=== PATIENT | female | born 1955 | race Caucasian/White ===

== ENCOUNTER 2016-11-27 12:28 | Emergency (ER) | payer BC ==
[~2016-11-27] VITALS: Ht 172.7 cm; Wt 87.6 kg
[~2016-11-27 12:28] MED LIST: AMIT10TA6 PO; ASPI-435 PO; CLON1TAB3 PO; METH1TAB66 PO; OXYC-57 PO; QUET400T PO
[2016-11-27 12:43] VITALS: TEMP 36.9; Ht 172.7 cm; Wt 87.6 kg
[2016-11-27 13:14] VITALS: O2SAT 95
--- NOTE | 2016-11-27 13:22 | DIAGNOSTIC IMAGING REPORT ---
CHEST ONE VIEW PORTABLE CLINICAL HISTORY: CP dyspnea COMPARISON STUDY: 07/17/2014 FINDINGS: The bones soft tissues and hemidiaphragms are normal. The cardiomediastinal silhouette is normal. The lungs are clear. The pulmonary vasculature is normal. IMPRESSION: Negative chest. Electronically signed by: Juan Echols M.D. 11/27/2016 1:21 PM Dictated Date/Time: 11/27/2016 1:21 PM
[2016-11-27] MEDS ORDERED: NITR1CAP16 PO (13:25)
[2016-11-27] MEDS ORDERED: ASPIRIN 81 MG CHEW PO STA (13:31)
[2016-11-27] MEDS ORDERED: ALBUT/IPRATROP 3MG/0.5MG NEB 3 ML VIAL INH STA (13:31)
[2016-11-27 14:07] LABS: HEMATOCRIT 38.8 % (37-47); MEAN CELL VOLUME 88.8 fL (80-100); MEAN CORPUSCULAR HEMOGLOBIN 30.9 pg (25-34); MEAN CORPUSCULAR HGB CONC 34.8 g/dl (32-36); MEAN PLATELET VOLUME 9.8 fL (7.4-10.4); PLATELET COUNT 208 K/uL (130-400); RED BLOOD COUNT 4.37 M/uL (4.2-5.4); WHITE BLOOD COUNT 6.07 K/uL (4.8-10.8)
[2016-11-27 14:16] LABS: PROTHROMBIN TIME (PATIENT) 10.4 SECONDS (9.0-12.0)
[2016-11-27 14:25] LABS: ALT/SGPT 27 U/L (12-78); BLOOD UREA NITROGEN 21 mg/dl (7-18); CARBON DIOXIDE 23 mmol/L (21-32); CHLORIDE 110 mmol/L (98-107); CREATININE 0.76 mg/dl (0.60-1.20); GLUCOSE 78 mg/dl (70-99); POTASSIUM 3.8 mmol/L (3.5-5.1); SODIUM 144 mmol/L (136-145)
[2016-11-27 14:30] LABS: ALB/GLOB RATIO 1.4 (0.9-2); ALKALINE PHOSPHATASE 116 U/L (45-117); AST/SGOT 20 U/L (15-37); CKMB/CK RATIO 1.4 (0-3.0)
[2016-11-27] MEDS ORDERED: KETOROLAC TROMETHAMINE 30 MG/ML VIAL IV STA (14:49)
[2016-11-27] MEDS ORDERED: HYDROCODONE/ACETAMOPHEN 5/325MG TAB PO STA (16:13)
[2016-11-27] MEDS ORDERED: HYDR-5688 PO (18:18)
--- NOTE | 2016-11-27 18:19 | EMERGENCY ROOM VISIT NOTE ---
History First contact with patient: 13:11 Chief Complaint: CHEST PAIN Stated Complaint: CHEST PAIN Nursing Triage Summary: PT PRESENTS VIA ALS FROM CAMPUS WHERE SHE WAS WORKING IN THE [place]ING [employer]. PT EXPERIENCED CHEST PAIN AT 1100 AND HAS REMAINED CONSTANT SINCE THEN. PT REPORTS PAIN "WORSE WITH INSPIRATION". PT VERBALIZES SHE HAS HAD BRONCHITIS FOR OVER A MONTH, JUST FINISHED Z-CRUZ THIS SUNDAY WITH NO IMPROVEMENT IN SYMPTOMS. PT DENIES ANY CARDIAC HX. History of Present Illness The patient is a 61 year old female who presents to the Emergency Room via ALS with complaints of chest pain which started at 11:00 today. The patient states it is all across her chest and worse on the sides especially when she takes in a deep inspiration. She describes it more as a tightness. She denies any jaw or arm pain. The patient states that she has had bronchitis for over a month. She finished a Z-Cruz last Sunday. She has been coughing for a long time. The patient also admits to head congestion but denies any ear pain or sore throat. The patient denies any nausea or vomiting. The patient denies any leg pain or swelling. The patient does not smoke. She denies any history of blood clots. The patient denies any leg pain, recent travel, hormone use. The patient denies any history of cardiac disorder. She had a stress test in July 2014 when they thought she might had a stroke. She states that was normal. Review of Systems 10 system review was performed and was negative unless stated otherwise history of present illness. Past Medical/Surgical History Medical Problems: (1) Appendectomy (2) Asthma, Unspecified (3) Cholecystectomy (4) Depression (5) Endometriosis (6) Hypertension Nos (7) Hysterectomy (8) Laparoscopy Family History Cancer Heart disease Hypertension Kidney disease Kidney stones Social History Smoking Status: Never Smoker Alcohol Use: none Drug Use: none Marital Status: Housing Status: lives with family Occupation Status: employed Current/Historical Medications Scheduled Amitriptyline Hcl (Elavil), 10 MG PO QAM Aspirin (Aspirin 81), 81 MG PO QPM Methylcellulose (Laxative) (Fiber Therapy), 1,000 MG PO DAILY Quetiapine Fumarate Xr (Seroquel Xr Tab), 400 MG PO HS Scheduled PRN Clonazepam (Klonopin), 1 MG PO DAILY PRN for UNKN Nitrofurantoin Monohyd Macro (Macrobid), 1 CAP PO UD PRN for Migraine Allergies Coded Allergies: Sulfa Drugs (Verified Allergy, Unknown, 07/17/14) Sulfamethoxazole (Verified Allergy, Unknown, 07/17/14) Physical Exam Vital Signs Date Time Temp Pulse Resp B/P Pulse Ox O2 Delivery O2 Flow Rate FiO2 11/27/16 17:23 83 18 151/104 94 Room Air 11/27/16 15:40 86 18 121/94 90 Room Air 11/27/16 14:43 90 20 130/91 92 Room Air 11/27/16 13:15 84 11/27/16 13:14 95 Room Air 11/27/16 13:11 92 Room Air 11/27/16 12:43 96 Room Air 11/27/16 12:43 36.9 85 20 141/99 98 Room Air Physical Exam PHYSICAL EXAM: Vital Signs were reviewed: Temperature 36.9, blood pressure 141/ 99, pulse 85, rest for a rate 20 Reviewed Nurse's notes and agree. Oxygen saturation is 98 % on room air which is normal . GENERAL: 61-year-old female appears in no acute distress. MENTAL STATUS: Alert, oriented, coherent. EARS: Canals with some cerumen able to visualize partial TMs without erythema or fluid level. NOSE: Nasal mucosa with moderate erythema engorgement. PHARYNX: No erythema, no edema noted. No exudate noted. Airway is adequate. NECK: Supple , non-tender. No lymphadenopathy noted. LUNGS: Clear to auscultation without wheezes rales or rhonchi. CARDIAC: Regular rate and rhythm without murmur. ABDOMEN: Positive bowel sounds all 4 quadrants. Soft, nontender to palpation without organomegaly or masses SKIN: No rashes noted. LOWER EXTREMITIES: No cyanosis or edema noted. Calves are nontender. No palpable cords. Medical Decision & Procedures ER Provider Diagnostic Interpretation: CHEST ONE VIEW PORTABLE CLINICAL HISTORY: CP dyspnea COMPARISON STUDY: 07/17/2014 FINDINGS: The bones soft tissues and hemidiaphragms are normal. The cardiomediastinal silhouette is normal. The lungs are clear. The pulmonary vasculature is normal. IMPRESSION: Negative chest. Electronically signed by: Juan Echols M.D. 11/27/2016 1:21 PM Dictated Date/Time: 11/27/2016 1:21 PM Laboratory Results 11/27/16 14:00 11/27/16 14:00 Test 11/27/16 14:00 11/27/16 14:06 11/27/16 17:27 Red Blood Count 4.37 M/uL (4.2-5.4) Mean Corpuscular Volume 88.8 fL (80-100) Mean Corpuscular Hemoglobin 30.9 pg (25-34) Mean Corpuscular Hemoglobin Concent 34.8 g/dl (32-36) RDW Standard Deviation 41.9 fL (36.4-46.3) RDW Coefficient of Variation 12.9 % (11.5-14.5) Mean Platelet Volume 9.8 fL (7.4-10.4) Prothrombin Time 10.4 SECONDS (9.0-12.0) Prothromb Time International Ratio 1.0 (0.9-1.1) Activated Partial Thromboplast Time 26.4 SECONDS (21.0-31.0) Partial Thromboplastin Ratio 1.0 Anion Gap 11.0 mmol/L (3-11) Est Creatinine Clear Calc Drug Dose 92.3 ml/min Estimated GFR () 99.5 Estimated GFR (Non- 85.9 BUN/Creatinine Ratio 27.0 (10-20) Calcium Level 9.0 mg/dl (8.5-10.1) Total Bilirubin 0.3 mg/dl (0.2-1) Aspartate Amino Transf (AST/SGOT) 20 U/L (15-37) Alanine Aminotransferase (ALT/SGPT) 27 U/L (12-78) Alkaline Phosphatase 116 U/L (45-117) Total Creatine Kinase 97 U/L (26-192) Creatine Kinase MB 1.4 ng/ml (0.5-3.6) Creatine Kinase MB Ratio 1.4 (0-3.0) Total Protein 6.9 gm/dl (6.4-8.2) Albumin 4.0 gm/dl (3.4-5.0) Globulin 2.9 gm/dl (2.5-4.0) Albumin/Globulin Ratio 1.4 (0.9-2) Bedside D-Dimer 186 ng/mlFEU (0-450) Troponin I < 0.015 ng/ml (0-0.045) Medications Administered Medications (Trade) Dose Ordered Sig/Maria Dolores Route Start Time Stop Time Status Last Admin Dose Admin Albuterol/ Ipratropium (Duoneb) 3 ml NOW STAT INH 11/27/16 13:31 11/27/16 13:33 DC 11/27/16 13:42 3 ML Ketorolac Tromethamine (Toradol Inj) 30 mg NOW STAT IV 11/27/16 14:49 11/27/16 14:50 DC 11/27/16 15:05 30 MG Acetaminophen/ Hydrocodone Bitart (Fenton 5/325 Tab) 2 tab NOW STAT PO 11/27/16 16:13 11/27/16 16:14 DC 11/27/16 16:33 2 TAB ECG Indication: chest pain Rhythm: normal sinus Findings: no acute ischemic change ED Course The patient was evaluated. EMR was reviewed. The patient did have a stress test in July 2014 which was normal. Critical pathway had been initiated. CBC differential, renal, coags, CK-MB, troponin, pointing care d-dimer was ordered. EKG was ordered and interpreted as above without any acute findings. Chest x-ray was ordered and interpreted by the radiologist as above without any acute findings. The patient had already been given 324 mg of aspirin in route to the ER. She was also given a DuoNeb. She stated that she felt better after the DuoNeb. She is placed on a monitor and given oxygen. Continuous pulse ox was placed. Labs are reviewed and were all unremarkable. Pointing care d- dimer was within normal limits. First troponin was within normal limits. A 90 minute troponin was normal. The patient's case was discussed with Dr. Lee who agrees with treatment plan. The patient was discharged home in stable condition. Medical Decision Differential diagnosis include pneumonia, costochondritis, bronchitis, asthma exacerbation, acute MS, PE Impression Primary Impression: Acute costochondritis Additional Impression: Bronchitis Departure Information Dispostion Home / Self-Care Condition GOOD Prescriptions Hydrocodone/Acetaminophen 5MG/325MG (Fenton 5MG/325MG) Tab 1-2 TABLET PO Q6 Y for Pain, #20 TAB For Initial Treatment Prov: Belinda Echols PA-C 11/27/16 Referrals Ang Morris M.D. (PCP) Forms HOME CARE DOCUMENTATION FORM, IMPORTANT VISIT INFORMATION Patient Instructions [email or web address] Additional Instructions Ibuprofen 600 mg every 6 hours with food for pain. Take Fenton as needed for more severe pain. Do not drive while taking the Fenton. If symptoms worsen such as experiencing severe chest pain, shortness of breath which is different than what you're currently experiencing return to the ER immediately. Problem Qualifiers
[2016-11-27 18:32] VITALS: BP 132/89; PULSE 77; O2SAT 94
== END 2016-11-27 18:33 | disposition home or self-care (01) ==
LOC: EDBD 12:28 → C.EDB 12:29
DX: M94.0 Chondrocostal junction syndrome [Tietze] (principal); J40 Bronchitis, not specified as acute or chronic; J45.909 Unspecified asthma, uncomplicated; F32.9 Major depressive disorder, single episode, unspecified; I10 Essential (primary) hypertension; Z90.710 Acquired absence of both cervix and uterus; Z82.49 Family history of ischemic heart disease and other diseases of the circulatory system; Z84.1 Family history of disorders of kidney and ureter; Z79.82 Long term (current) use of aspirin

== ENCOUNTER → 2017-08-26 | Outpatient (CLI) | payer BC ==
[~2017-08-26] MED LIST changes: +NITR1CAP16 PO; -OXYC-57 PO
--- NOTE | 2017-08-26 15:02 | DIAGNOSTIC IMAGING REPORT ---
L RIBS UNILATERAL WITH PA CHEST HISTORY: 62 years-old Female RIB PAIN ON LEFT SIDE acute left-sided rib pain status post recent fall COMPARISON: Chest and rib radiographs 12/30/2015 TECHNIQUE: PA view of the chest with 4 views of the left ribs FINDINGS: Cardiomediastinal and hilar silhouettes are within normal limits. There is mild tortuosity and atherosclerosis of the thoracic aorta. Patient is slightly rotated to the right. Mild biapical pleural-parenchymal scarring. There is no pneumothorax, pleural effusion, focal airspace consolidation or overt pulmonary edema. Bones of the chest are grossly intact. No acute rib fracture identified. Surgical clips of the right upper abdomen suggest prior cholecystectomy. IMPRESSION: 1. No acute cardiopulmonary process. No pneumothorax. 2. No acute rib fracture identified. The above report was generated using voice recognition software. It may contain grammatical, syntax or spelling errors. Electronically signed by: Regino Catherine M.D. 08/26/2017 3:00 PM Dictated Date/Time: 08/26/2017 2:58 PM
== END | disposition home or self-care (01) ==
LOC: C.RAD 14:07
PROVIDERS: ATTEND Physician Assistant Medical
DX: R07.81 Pleurodynia (principal)

== ENCOUNTER → 2017-09-05 | Outpatient (CLI) | payer BC ==
[~2017-09-05] MED LIST changes: +KLN1 PO; +MIDRIN PO; +QUET1TAB37 PO
== END | disposition home or self-care (01) ==
LOC: C.PAPS 09:42
PROVIDERS: ATTEND Obstetrics & Gynecology
DX: Z01.419 Encounter for gynecological examination (general) (routine) without abnormal findings (principal)

== ENCOUNTER → 2017-09-05 | Outpatient (CLI) | payer BC ==
[~2017-09-05] MED LIST changes: -KLN1 PO; -MIDRIN PO; -QUET1TAB37 PO
[2017-09-05 15:36] LABS: URINE APPEARANCE CLOUDY (CLEAR); URINE BILIRUBIN NEG (NEG); URINE COLOR YELLOW; URINE EPITHELIAL CELL AUTO >30 /lpf (0-5); URINE NITRITE NEG (NEG); URINE SPECIFIC GRAVITY 1.024 (1.000-1.030); UROBILINOGEN NEG (NEG); ZZUR CULT IF INDIC CLEAN CATCH YES
[2017-09-05 15:50] LABS: MANUAL MICROSCOPIC REQUIRED? NO; REVIEW REQ? NO
== END | disposition home or self-care (01) ==
LOC: C.LABSPEC 14:52
PROVIDERS: ATTEND Obstetrics & Gynecology
DX: R31.9 Hematuria, unspecified (principal)

== ENCOUNTER 2017-09-16 13:51 | Observation (INO) | payer BC ==
[~2017-09-16] VITALS: Ht 172.7 cm; Wt 83.9 kg
[2017-09-16] MEDS ORDERED: KLN1 PO (14:33)
[2017-09-16] MEDS ORDERED: QUET1TAB37 PO (14:33)
--- NOTE | 2017-09-16 14:59 | EMERGENCY ROOM VISIT NOTE ---
History Report prepared by Santi: Cristobal Courtney Under the Supervision of: Dr. Jim Harper M.D. First contact with patient: 14:20 Chief Complaint: CHEST PAIN Stated Complaint: CHEST PAIN,ARM PAIN Nursing Triage Summary: Pt c/o left arm that began an hour ago "and a little bit of chest pain (left) here and there". Denies nausea, SOB, DESHPANDE, nausea, diaphoresis. History of Present Illness The patient is a 62 year old white female with a past medical history of cholecystectomy, appendectomy, depression who presents to the ED with a cc of constant chest pain beginning 1230. She rates her pain as a 3/10 in severity. Positive right arm pain, finger numbness. Negative swelling in legs, history of blood clots, calf pain, shortness of breath, nausea, diaphoresis, cough, fevers , chills, a prior similar experience, a history of heart attacks. She states that she was standing at the mauro register at [employer] when the pain started. The patient reports that she fell three weeks ago, which caused her to develop a bruise to the left side of her chest and knee pain. She reports that her father and brother due to heart complications at the age of 63 and 43, respectively. The patient admits that she did not take her baby aspirin today. Source of History: patient Onset: 1230 Position: chest Symptom Intensity: 3/10 Timing: constant Associated Symptoms: + numbness, No fevers, No chills, No diaphoresis, No cough, No SOB, No nausea Review of Systems See HPI for pertinent positives and negatives. A total of ten systems were reviewed and were otherwise negative. Past Medical & Surgical Medical Problems: (1) Appendectomy (2) Asthma, Unspecified (3) Cholecystectomy (4) Depression (5) Endometriosis (6) Hypertension Nos (7) Hysterectomy (8) Laparoscopy Family History Cancer Heart disease Hypertension Kidney disease Kidney stones Social History Smoking Status: Never Smoker Alcohol Use: none Drug Use: none Marital Status: Housing Status: lives with family Occupation Status: employed Current/Historical Medications Scheduled Amitriptyline Hcl (Elavil), 10 MG PO QAM Aspirin (Aspirin 81), 81 MG PO QPM Clonazepam (Clonazepam), 2 MG PO HS Methylcellulose (Laxative) (Fiber Therapy), 1,000 MG PO DAILY Quetiapine Fumarate (Seroquel), 300 MG PO DAILY Scheduled PRN Nitrofurantoin Monohyd Macro (Macrobid), 1 CAP PO UD PRN for Migraine Allergies Coded Allergies: Sulfa Drugs (Verified Allergy, Unknown, 09/16/17) Sulfamethoxazole (Verified Allergy, Unknown, 09/16/17) Physical Exam Vital Signs Date Time Temp Pulse Resp B/P (MAP) Pulse Ox O2 Delivery O2 Flow Rate FiO2 09/16/17 16:47 68 119/91 09/16/17 16:01 77 133/88 09/16/17 15:09 76 18 136/97 94 Room Air 09/16/17 14:19 81 09/16/17 14:17 95 Room Air 09/16/17 13:56 93 Room Air 09/16/17 13:53 36.6 87 16 157/84 93 Room Air Physical Exam GENERAL: Awake, alert, well-appearing, NAD HENT: Normocephalic, atraumatic. EYES: Normal conjunctiva. Sclera non-icteric. NECK: Supple. No nuchal rigidity. FROM. RESPIRATORY: CTAB, no rhonchi, wheezing, crackles CARDIAC: RRR, no MRG ABDOMEN: Soft, NTND, BS+ MSK: No reproducible chest wall tenderness. TTP, no LE edema, negative Homans, no erythema, calor, or asymmetry. NEURO: GCS 15, CN 2-12 intact, moves all 4s on command SKIN: No rash or jaundice noted. Medical Decision & Procedures ER Provider Diagnostic Interpretation: X-ray: Per my interpretation, radiologist review. SINGLE VIEW CHEST CLINICAL HISTORY: Atypical chest pain. FINDINGS: An AP, portable, upright chest radiograph is compared to study dated 11/27/2016. The examination is degraded by portable technique and patient rotation. The cardiomediastinal silhouette is unremarkable. There is mild atherosclerotic calcification of the thoracic aorta. Chronic interstitial thickening is unchanged. No airspace consolidation, large pleural effusion, or pneumothorax is seen. The skeletal structures are osteopenic. Degenerative change and scoliosis are noted in the thoracic spine. IMPRESSION: No acute cardiopulmonary abnormality. Electronically signed by: Contreras Barnett M.D. 09/16/2017 3:25 PM Dictated Date/Time: 09/16/2017 3:24 PM Laboratory Results 09/16/17 14:52 Red Blood Count 4.55, Mean Corpuscular Volume 92.3, Mean Corpuscular Hemoglobin 31.0, Mean Corpuscular Hemoglobin Concent 33.6, Mean Platelet Volume 10.6, Neutrophils (%) (Auto) 56.8, Lymphocytes (%) (Auto) 30.8, Monocytes (%) (Auto) 8.8, Eosinophils (%) (Auto) 3.0, Basophils (%) (Auto) 0.2, Neutrophils # (Auto) 2.84, Lymphocytes # (Auto) 1.54, Monocytes # (Auto) 0.44, Eosinophils # (Auto) 0.15, Basophils # (Auto) 0.01 09/16/17 14:52 09/16/17 16:22 Test 09/16/17 14:52 09/16/17 16:22 White Blood Count 5.00 K/uL (4.8-10.8) Red Blood Count 4.55 M/uL (4.2-5.4) Hemoglobin 14.1 g/dL (12.0-16.0) Hematocrit 42.0 % (37-47) Mean Corpuscular Volume 92.3 fL (80-100) Mean Corpuscular Hemoglobin 31.0 pg (25-34) Mean Corpuscular Hemoglobin Concent 33.6 g/dl (32-36) Platelet Count 198 K/uL (130-400) Mean Platelet Volume 10.6 fL (7.4-10.4) Neutrophils (%) (Auto) 56.8 % Lymphocytes (%) (Auto) 30.8 % Monocytes (%) (Auto) 8.8 % Eosinophils (%) (Auto) 3.0 % Basophils (%) (Auto) 0.2 % Neutrophils # (Auto) 2.84 K/uL (1.4-6.5) Lymphocytes # (Auto) 1.54 K/uL (1.2-3.4) Monocytes # (Auto) 0.44 K/uL (0.11-0.59) Eosinophils # (Auto) 0.15 K/uL (0-0.5) Basophils # (Auto) 0.01 K/uL (0-0.2) RDW Standard Deviation 44.6 fL (36.4-46.3) RDW Coefficient of Variation 13.2 % (11.5-14.5) Immature Granulocyte % (Auto) 0.4 % Immature Granulocyte # (Auto) 0.02 K/uL (0.00-0.02) Prothrombin Time 10.6 SECONDS (9.0-12.0) Prothromb Time International Ratio 1.0 (0.9-1.1) Activated Partial Thromboplast Time 26.6 SECONDS (21.0-31.0) Partial Thromboplastin Ratio 1.0 Anion Gap 4.0 mmol/L (3-11) Est Creatinine Clear Calc Drug Dose 86.0 ml/min Estimated GFR () 92.9 Estimated GFR (Non- 80.1 BUN/Creatinine Ratio 26.6 (10-20) Calcium Level 9.2 mg/dl (8.5-10.1) Phosphorus Level 3.3 mg/dl (2.5-4.9) Total Bilirubin 0.6 mg/dl (0.2-1) Alanine Aminotransferase (ALT/SGPT) 38 U/L (12-78) Alkaline Phosphatase 121 U/L (45-117) Troponin I < 0.015 ng/ml (0-0.045) Total Protein 7.5 gm/dl (6.4-8.2) Albumin 4.1 gm/dl (3.4-5.0) Lipase 96 U/L (73-393) Magnesium Level 2.5 mg/dl (1.8-2.4) Direct Bilirubin 0.1 mg/dl (0-0.2) Aspartate Amino Transf (AST/SGOT) 23 U/L (15-37) Laboratory results reviewed by me Medications Administered Medications (Trade) Dose Ordered Sig/Maria Dolores Route Start Time Stop Time Status Last Admin Dose Admin Nitroglycerin (Nitrostat Tab) 0.4 mg Q5M PRN SL 09/16/17 15:15 18 15:14 09/16/17 16:00 0.4 MG Aspirin (Aspirin Chew) 324 mg NOW STAT PO 09/16/17 15:02 09/16/17 15:04 DC 09/16/17 15:26 324 MG Acetaminophen (Tylenol Tab) 1,000 mg NOW STAT PO 09/16/17 16:11 09/16/17 16:12 DC 09/16/17 16:21 1,000 MG ECG Indication: chest pain Rate (beats per minute): 85 Rhythm: normal sinus Findings: other (Normal intervals and axis. No other ST or TWI changes.) ED Course 1439: The patient was evaluated in room B08. A complete history and physical exam was performed. 1622: I discussed the patients case with Reinier Islas Hospitalist. She understands the patients condition and agrees to accept the patient. The patient will be further evaluated. 1638: I reevaluated the patient and updated her on her results. I discussed the treatment plan and she agrees. The patient will be further evaluated. Medical Decision Triage Nursing notes reviewed. The patient's presentation and history were concerning for etiologies such as cardiac ischemia, aortic dissection, pulmonary embolism, pneumonia, pneumothorax , musculoskeletal, infections, pericarditis, myocarditis, esophageal rupture, gastrointestinal, as well as others were entertained. Patient was seen and evaluated the bedside. Patient is a [id number] with no known medical problems. Patient does have an family history of early HI. Patient states that her father and brother at the ages of 63 and 43 respectively from MIs. Patient says that she had sudden onset of nonexertional left-sided chest pain that she cannot describe associated pain in her left upper extremity. Patient denies any shortness of breath nausea vomiting or diaphoresis. Patient denies any history of DVT or PE. Patient has no recent prolonged car or plane travel. She denies any lower extremity swelling. Patient states that she has had an echo and stress tests however review the EMR this is not been done in over 3 years. Patient does take a baby aspirin but does not take one today. Patient denies any infectious symptoms. Patient did have blood work completed along with a troponin EKG. Patient was given aspirin and nitroglycerin. Upon reassessment the patient's chest pain improved. Patient does have borderline hypertension and has some borderline obesity. Given the patient's familial early cardiac history I did speak with the hospitalist agreed the patient would likely benefit from observation, trending of enzymes, and more provocative testing tomorrow. Patient was complaining of some mild headache after the nitroglycerin. She was given Tylenol. Patient's EKG was nonischemic. Patient's blood work was fairly unremarkable had a negative troponin. Chest x-ray was clear. Patient was admitted for observation. Medication Reconcilliation Current Medication List: was personally reviewed by me Blood Pressure Screening Patient's blood pressure: Elevated blood pressure Blood pressure disposition: Elevated BP felt to be situational Consults Time Called: 1621 Consulting Physician: Esperanza Islas Hospitalist Returned Call: [phone]: I discussed the patients case with Esperanza Islas Hospitalist. She understands the patients condition and agrees to accept the patient. The patient will be further evaluated. Impression Primary Impression: Atypical chest pain Scribe Attestation The scribe's documentation has been prepared under my direction and personally reviewed by me in its entirety. I confirm that the note above accurately reflects all work, treatment, procedures, and medical decision making performed by me. Departure Information Dispostion Being Evaluated By Hospitalist Referrals Ang Morris M.D. (PCP) Patient Instructions [facility]
[2017-09-16] MEDS ORDERED: ASPIRIN 81 MG CHEW PO STA (15:02)
[2017-09-16] MEDS ORDERED: NITROGLYCERIN 0.4 MG SL PER TAB CHARGE SL PRN (15:15)
[2017-09-16 15:22] LABS: PROTHROMBIN TIME (PATIENT) 10.6 SECONDS (9.0-12.0)
--- NOTE | 2017-09-16 15:27 | DIAGNOSTIC IMAGING REPORT ---
SINGLE VIEW CHEST CLINICAL HISTORY: Atypical chest pain. FINDINGS: An AP, portable, upright chest radiograph is compared to study dated 11/27/2016. The examination is degraded by portable technique and patient rotation. The cardiomediastinal silhouette is unremarkable. There is mild atherosclerotic calcification of the thoracic aorta. Chronic interstitial thickening is unchanged. No airspace consolidation, large pleural effusion, or pneumothorax is seen. The skeletal structures are osteopenic. Degenerative change and scoliosis are noted in the thoracic spine. IMPRESSION: No acute cardiopulmonary abnormality. Electronically signed by: Contreras Barnett M.D. 09/16/2017 3:25 PM Dictated Date/Time: 09/16/2017 3:24 PM
[2017-09-16 15:31] LABS: BASO % 0.2 %; BASO ABS # 0.01 K/uL (0-0.2); COMPLETE YES; IG% 0.4 %; LYMPH % 30.8 %; LYMPH ABS # 1.54 K/uL (1.2-3.4); MEAN CELL VOLUME 92.3 fL (80-100); MEAN CORPUSCULAR HGB CONC 33.6 g/dl (32-36); MEAN PLATELET VOLUME 10.6 fL (7.4-10.4); MONO % 8.8 %; NEUT % 56.8 %; PLATELET COUNT 198 K/uL (130-400); RED BLOOD COUNT 4.55 M/uL (4.2-5.4)
[2017-09-16 16:07] LABS: ALKALINE PHOSPHATASE 121 U/L (45-117); ALT/SGPT 38 U/L (12-78); BLOOD UREA NITROGEN 21 mg/dl (7-18); BUN/CREATININE RATIO 26.6 (10-20); CALCIUM 9.2 mg/dl (8.5-10.1); CARBON DIOXIDE 27 mmol/L (21-32); CHLORIDE 106 mmol/L (98-107); GLUCOSE 78 mg/dl (70-99); PHOSPHORUS 3.3 mg/dl (2.5-4.9); SODIUM 137 mmol/L (136-145)
[2017-09-16] MEDS ORDERED: ACETAMINOPHEN 500 MG TAB PO STA (16:11)
[2017-09-16 16:49] LABS: POTASSIUM 3.9 mmol/L (3.5-5.1)
[2017-09-16 16:54] LABS: MAGNESIUM 2.5 mg/dl (1.8-2.4)
[2017-09-16] MEDS ORDERED: MIDRIN PO (17:24)
[2017-09-16] MEDS ORDERED: POLYETHYLENE (MIRALAX) 17 GM PACK PO PRN (17:30)
[2017-09-16] MEDS ORDERED: ONDANSETRON INJ 2 MG/ML 2 ML VIAL IV PRN (17:30)
[2017-09-16] MEDS ORDERED: HYDROCODONE/ACETAMINOPHEN 7.5/325MG TAB PO PRN (17:30)
--- NOTE | 2017-09-16 17:35 | History and Physical ---
History & Physical Date & Time of Service: Sep 16, 2017 at 17:24 Chief Complaint: Chest Pain,Arm Pain Primary Care Physician: Ang Morris M.D. 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 She had been working for 1.5 hours when pain came on. Pain was described as being in her L anterior chest with radiation down her R arm and into her hand. Numbness was present in the L hand. The pain lasted for 30 minutes and resolved spontaneously. It later came back and persisted until she arrived to the ER from PCP office. She was given nitro which took the pain away, but then came back mildly. She reports not being able to tolerate morphine or oxycodone (Percocet) in the past. She denies any associated symptoms of SOB, diaphoresis, headache, palpitations, nausea, vomiting, diarrhea. She reports having a stress test 3 years ago which she says was normal. Her father from an MT at age 63 yrs old and her brother from a cardiomyopathy at age 43. She denies any chest pain prior to today except in the distant past as a one time episode, not involving the arm. Past Medical/Surgical History Medical Problems: (1) Appendectomy Status: Resolved (2) Asthma, Unspecified Status: Chronic (3) Cholecystectomy Status: Resolved (4) Depression Status: Chronic (5) Endometriosis Status: Chronic (6) Hypertension Nos Status: Chronic (7) Hysterectomy Status: Resolved (8) Laparoscopy Status: Resolved Family History Cancer Heart disease Hypertension Kidney disease Kidney stones Social History Smoking Status: Never Smoker Smokeless Tobacco Use: No Alcohol Use: none Drug Use: none Marital Status: Housing status: lives with family Occupational Status: employed Immunizations History of Influenza Vaccine: N/A History of Tetanus Vaccine?: UTD Tetanus Immunization Date: March 05, 2004 History of Pneumococcal: No History of Hepatitis B Vaccine: Yes Hepatitis Immunization Date: March 05, 2006 Multi-Drug Resistant Organisms History of MDRO: No Allergies Coded Allergies: Sulfa Antibiotics (Verified Allergy, Unknown, unknown, 09/16/17) Sulfamethoxazole (Verified Allergy, Unknown, 09/16/17) Home Medications Scheduled Amitriptyline Hcl (Elavil), 10 MG PO QAM Aspirin (Aspirin 81), 81 MG PO DAILY Clonazepam (Clonazepam), 2 MG PO HS Methylcellulose (Laxative) (Fiber Therapy), 1,000 MG PO DAILY Quetiapine Fumarate (Seroquel), 300 MG PO HS Scheduled PRN [Midrin], 1 CAP PO UD PRN for Migraine Review of Systems AT least ten systems were reviewed and negative except as indicated in HPI. Physical Exam Vital Signs Date Time Temp Pulse Resp B/P (MAP) Pulse Ox O2 Delivery O2 Flow Rate FiO2 09/16/17 16:47 68 119/91 09/16/17 16:01 77 133/88 09/16/17 15:09 76 18 136/97 94 Room Air 09/16/17 14:19 81 09/16/17 14:17 95 Room Air 09/16/17 13:56 93 Room Air 09/16/17 13:53 36.6 87 16 157/84 93 Room Air General Appearance: WD/WN, no apparent distress Head: normocephalic, atraumatic Eyes: normal inspection, PERRL, sclerae normal ENT: hearing grossly normal, pharynx normal Neck: supple, no adenopathy, no JVD, trachea midline Respiratory/Chest: chest non-tender, lungs clear, normal breath sounds, no respiratory distress, no accessory muscle use Cardiovascular: regular rate, rhythm, no edema, no gallop, no JVD, no murmur, normal peripheral pulses Abdomen/GI: normal bowel sounds, non tender, soft Back: normal inspection Extremities/Musculoskelatal: normal inspection, no pedal edema, normal range of motion Neurologic/Psych: silk hanger II-XII nml as tested, no motor/sensory deficits, alert, normal mood/affect, oriented x 3 Skin: normal color, warm/dry, no rash Diagnostics Laboratory Results 09/16/17 14:52 Red Blood Count 4.55, Mean Corpuscular Volume 92.3, Mean Corpuscular Hemoglobin 31.0, Mean Corpuscular Hemoglobin Concent 33.6, Mean Platelet Volume 10.6, Neutrophils (%) (Auto) 56.8, Lymphocytes (%) (Auto) 30.8, Monocytes (%) (Auto) 8.8, Eosinophils (%) (Auto) 3.0, Basophils (%) (Auto) 0.2, Neutrophils # (Auto) 2.84, Lymphocytes # (Auto) 1.54, Monocytes # (Auto) 0.44, Eosinophils # (Auto) 0.15, Basophils # (Auto) 0.01 09/16/17 14:52 09/16/17 16:22 Test 09/16/17 14:52 09/16/17 16:22 White Blood Count 5.00 K/uL (4.8-10.8) Red Blood Count 4.55 M/uL (4.2-5.4) Hemoglobin 14.1 g/dL (12.0-16.0) Hematocrit 42.0 % (37-47) Mean Corpuscular Volume 92.3 fL (80-100) Mean Corpuscular Hemoglobin 31.0 pg (25-34) Mean Corpuscular Hemoglobin Concent 33.6 g/dl (32-36) Platelet Count 198 K/uL (130-400) Mean Platelet Volume 10.6 fL (7.4-10.4) Neutrophils (%) (Auto) 56.8 % Lymphocytes (%) (Auto) 30.8 % Monocytes (%) (Auto) 8.8 % Eosinophils (%) (Auto) 3.0 % Basophils (%) (Auto) 0.2 % Neutrophils # (Auto) 2.84 K/uL (1.4-6.5) Lymphocytes # (Auto) 1.54 K/uL (1.2-3.4) Monocytes # (Auto) 0.44 K/uL (0.11-0.59) Eosinophils # (Auto) 0.15 K/uL (0-0.5) Basophils # (Auto) 0.01 K/uL (0-0.2) RDW Standard Deviation 44.6 fL (36.4-46.3) RDW Coefficient of Variation 13.2 % (11.5-14.5) Immature Granulocyte % (Auto) 0.4 % Immature Granulocyte # (Auto) 0.02 K/uL (0.00-0.02) Prothrombin Time 10.6 SECONDS (9.0-12.0) Prothromb Time International Ratio 1.0 (0.9-1.1) Activated Partial Thromboplast Time 26.6 SECONDS (21.0-31.0) Partial Thromboplastin Ratio 1.0 Anion Gap 4.0 mmol/L (3-11) Est Creatinine Clear Calc Drug Dose 86.0 ml/min Estimated GFR () 92.9 Estimated GFR (Non- 80.1 BUN/Creatinine Ratio 26.6 (10-20) Calcium Level 9.2 mg/dl (8.5-10.1) Phosphorus Level 3.3 mg/dl (2.5-4.9) Total Bilirubin 0.6 mg/dl (0.2-1) Alanine Aminotransferase (ALT/SGPT) 38 U/L (12-78) Alkaline Phosphatase 121 U/L (45-117) Troponin I < 0.015 ng/ml (0-0.045) Total Protein 7.5 gm/dl (6.4-8.2) Albumin 4.1 gm/dl (3.4-5.0) Lipase 96 U/L (73-393) Magnesium Level 2.5 mg/dl (1.8-2.4) Direct Bilirubin 0.1 mg/dl (0-0.2) Aspartate Amino Transf (AST/SGOT) 23 U/L (15-37) Results Past 24 Hours Test 09/16/17 14:52 09/16/17 16:22 Range/Units White Blood Count 5.00 4.8-10.8 K/uL Red Blood Count 4.55 4.2-5.4 M/uL Hemoglobin 14.1 12.0-16.0 g/dL Hematocrit 42.0 37-47 % Mean Corpuscular Volume 92.3 80-100 fL Mean Corpuscular Hemoglobin 31.0 25-34 pg Mean Corpuscular Hemoglobin Concent 33.6 32-36 g/dl Platelet Count 198 130-400 K/uL Mean Platelet Volume 10.6 7.4-10.4 fL Neutrophils (%) (Auto) 56.8 % Lymphocytes (%) (Auto) 30.8 % Monocytes (%) (Auto) 8.8 % Eosinophils (%) (Auto) 3.0 % Basophils (%) (Auto) 0.2 % Neutrophils # (Auto) 2.84 1.4-6.5 K/uL Lymphocytes # (Auto) 1.54 1.2-3.4 K/uL Monocytes # (Auto) 0.44 0.11-0.59 K/uL Eosinophils # (Auto) 0.15 0-0.5 K/uL Basophils # (Auto) 0.01 0-0.2 K/uL RDW Standard Deviation 44.6 36.4-46.3 fL RDW Coefficient of Variation 13.2 11.5-14.5 % Immature Granulocyte % (Auto) 0.4 % Immature Granulocyte # (Auto) 0.02 0.00-0.02 K/uL Prothrombin Time 10.6 9.0-12.0 SECONDS Prothromb Time International Ratio 1.0 0.9-1.1 Activated Partial Thromboplast Time 26.6 21.0-31.0 SECONDS Partial Thromboplastin Ratio 1.0 Sodium Level 137 136-145 mmol/L Potassium Level 3.9 3.5-5.1 mmol/L Chloride Level 106 98-107 mmol/L Carbon Dioxide Level 27 21-32 mmol/L Anion Gap 4.0 3-11 mmol/L Blood Urea Nitrogen 21 7-18 mg/dl Creatinine 0.80 0.60-1.20 mg/dl Est Creatinine Clear Calc Drug Dose 86.0 ml/min Estimated GFR () 92.9 Estimated GFR (Non- 80.1 BUN/Creatinine Ratio 26.6 10-20 Random Glucose 78 70-99 mg/dl Calcium Level 9.2 8.5-10.1 mg/dl Phosphorus Level 3.3 2.5-4.9 mg/dl Magnesium Level 2.5 1.8-2.4 mg/dl Total Bilirubin 0.6 0.2-1 mg/dl Direct Bilirubin 0.1 0-0.2 mg/dl Aspartate Amino Transf (AST/SGOT) 23 15-37 U/L Alanine Aminotransferase (ALT/SGPT) 38 12-78 U/L Alkaline Phosphatase 121 45-117 U/L Troponin I < 0.015 0-0.045 ng/ml Total Protein 7.5 6.4-8.2 gm/dl Albumin 4.1 3.4-5.0 gm/dl Lipase 96 73-393 U/L Diagnostic Radiology SINGLE VIEW CHEST CLINICAL HISTORY: Atypical chest pain. FINDINGS: An AP, portable, upright chest radiograph is compared to study dated 11/27/2016. The examination is degraded by portable technique and patient rotation. The cardiomediastinal silhouette is unremarkable. There is mild atherosclerotic calcification of the thoracic aorta. Chronic interstitial thickening is unchanged. No airspace consolidation, large pleural effusion, or pneumothorax is seen. The skeletal structures are osteopenic. Degenerative change and scoliosis are noted in the thoracic spine. IMPRESSION: No acute cardiopulmonary abnormality EKG SR 85 Normal EKG Impression Assessment and Plan 62 yo F with strong family h/o heart disease presents with two episodes of chest pain while standing at work, relieved by nitro. 1. Chest pain-initial workup is negative. Will trend cardiac enzymes overnight. Gary for pain, Nitro paste q6h. NPO p MN. Cards consulted for consideration of stress test in am. Cont daily ASA. Start Lip 80. 2. Depression/Anxiety-cont Seroquel 300mg PO qHS (just reduced from 400mg last week). Cont chronic Clonazepam 2mg HS. Cont Elavil 10mg PO AM. DVT proph: Lovenox Full Code Dispo-telemetry overnight DO Esperanza Connelly Hospitalist Level of Care Telemetry VTE Prophylaxis VTE Risk Assessment Done? Y/N: Yes Risk Level: Moderate Given or contraindicated: Enoxaparin (Lovenox)SQ
[2017-09-16] MEDS ORDERED: IV FLUIDS COMPLETED PRN (18:15)
[2017-09-16 19:21] VITALS: BP 136/90; PULSE 67; TEMP 36.7; O2SAT 99
[2017-09-16 19:42] VITALS: BP 136/90; PULSE 67; TEMP 36.7; O2SAT 99; Ht 172.7 cm; Wt 83.9 kg
[2017-09-16] MEDS: NITROGLYCERIN OINT 2% 1GM PACKET EXT SCH (20:29)
[2017-09-16] MEDS: QUETIAPINE FUMARATE 300 MG TAB PO SCH (20:30)
[2017-09-16] MEDS: CLONAZEPAM 1 MG TAB PO SCH (20:39)
[2017-09-16] MEDS: ATORVASTATIN 40 MG TAB PO SCH (21:02)
[2017-09-16 21:24] LABS: CKMB/CK RATIO 1.4 (0-3.0)
[2017-09-16] MEDS: ACETAMINOPHEN 325 MG TAB PO PRN (21:29)
[2017-09-16 23:51] VITALS: BP 95/61; PULSE 96; TEMP 36.7; O2SAT 93
[2017-09-17] VITALS (9 sets, daily range): BP systolic 93–128; BP diastolic 59–86; PULSE 52–84; TEMP 36.6–36.9; O2SAT 93–98
[2017-09-17] MEDS: NITROGLYCERIN OINT 2% 1GM PACKET EXT SCH (02:07)
[2017-09-17] MEDS ORDERED: LORAZEPAM INJ 0.5 MG in SYRINGE 0.75 ML IV PRN (02:45)
[2017-09-17] MEDS ORDERED: PROCHLORPERAZINE INJ 5 MG in SYRINGE 4 ML IV PRN (02:45)
[2017-09-17] MEDS ORDERED: SODIUM CHLORIDE 0.9% 1000ML 250 ML IV SCH (02:45)
[2017-09-17] MEDS ORDERED: LORAZEPAM 2 MG/ML 1 ML VIAL IV PRN (02:45)
[2017-09-17 02:54] LABS: BASO % 0.2 %; BASO ABS # 0.01 K/uL (0-0.2); COMPLETE YES; EOS % 3.9 %; HEMATOCRIT 37.6 % (37-47); IG% 0.2 %; LYMPH % 43.5 %; LYMPH ABS # 2.02 K/uL (1.2-3.4); MEAN CELL VOLUME 93.3 fL (80-100); MEAN CORPUSCULAR HEMOGLOBIN 31.3 pg (25-34); MEAN CORPUSCULAR HGB CONC 33.5 g/dl (32-36); MEAN PLATELET VOLUME 10.2 fL (7.4-10.4); MONO % 6.9 %; NEUT % 45.3 %; PLATELET COUNT 181 K/uL (130-400); RED BLOOD COUNT 4.03 M/uL (4.2-5.4); WHITE BLOOD COUNT 4.64 K/uL (4.8-10.8)
[2017-09-17 03:02] LABS: PARTIAL THROMBOPLASTIN RATIO 0.9
[2017-09-17 03:11] LABS: BLOOD UREA NITROGEN 24 mg/dl (7-18); CALCIUM 8.6 mg/dl (8.5-10.1); CARBON DIOXIDE 26 mmol/L (21-32); CHLORIDE 109 mmol/L (98-107); CREATININE 0.81 mg/dl (0.60-1.20); GLUCOSE 107 mg/dl (70-99); POTASSIUM 3.6 mmol/L (3.5-5.1); SODIUM 140 mmol/L (136-145)
[2017-09-17] MEDS ORDERED: LACTATED RINGER'S 1000ML 1,000 ML IV SCH (04:15)
[2017-09-17] MEDS ORDERED: MoRPHine SULFATE 4 MG/ML 1 ML CARP\\VIAL IV PRN (04:15)
[2017-09-17] MEDS: HYDROCODONE/ACETAMINOPHEN 7.5/325MG TAB PO PRN ×2 (04:37→18:24)
[2017-09-17] MEDS ORDERED: ENOXAPARIN 40 MG/0.4 ML SYR SC SCH (09:00)
[2017-09-17] MEDS: ASPIRIN 81 MG ECTAB PO SCH (09:10)
[2017-09-17] MEDS: AMITRIPTYLINE HCL 10 MG TAB PO SCH (09:11)
--- NOTE | 2017-09-17 10:38 | CARDIOLOGY CONSULTATION ---
DATE OF CONSULTATION: 09/17/2017 REASON FOR CONSULTATION: Chest pain. REFERRING PHYSICIAN: Dr. Shania Francisco. HISTORY OF PRESENT ILLNESS: Ms. Hinkle is a 62-year-old female with a family history of premature coronary artery disease, presented to the ER with chest discomfort. 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 The patient had been standing at the register, when she developed a left-sided chest ache, which was initially severe, 8/10, radiating down her left arm. There was no associated nausea, diaphoresis, or shortness of breath. The pain lasted for more than 90 minutes. She presented to urgent care clinic and then was referred to the Emergency Department. The patient also reported some numbness of her left hand. She received nitro in the ER, which gave some relief. The pain was intermittent thereafter. Her cardiac enzymes are undetectable. Baseline ECG demonstrates no ischemic changes. Telemetry demonstrates no dysrhythmia. She denies any prior history of coronary artery disease, congestive heart failure, dysrhythmia, rheumatic fever as a child, diabetes, or dyslipidemia. No orthopnea, PND, lower extremity edema, claudication, or palpitations. Denies lightheadedness, dizziness, syncope, or near syncope. Currently, the patient is resting comfortably. No chest discomfort this a.m. Nitro paste was removed due to hypotension and diaphoresis. She offers no other complaints at this time. REVIEW OF SYSTEMS: The pertinent positives noted above. Comprehensive 10-system review is otherwise negative. PAST MEDICAL HISTORY: 1. Appendectomy. 2. Reactive airways disease. 3. Cholecystectomy. 4. Depression. 5. Endometriosis. 6. Hypertension. PAST SURGICAL HISTORY: 1. Hysterectomy. 2. Laparoscopic surgery. FAMILY HISTORY: Father suffered a myocardial infarction at age 60. Brother of myocardial infarction at age 43. SOCIAL HISTORY: Lifelong nonsmoker. and lives with her family. She is employed at [employer] as well as [employer] ALLERGIES: SULFA. HOME MEDICATIONS: 1. Amitriptyline 10 mg daily. 2. Aspirin 81 mg daily. 3. Clonazepam 2 mg at bedtime. 4. Seroquel 300 mg at bedtime. 5. Midrin 1 as needed for migraine. ECG ON ADMISSION: Sinus rhythm. Normal ECG. Chest x-ray on admission: No acute cardiopulmonary abnormality. LABORATORY DATA: INR 1.0. White blood cell count 5.0, hemoglobin is 14.1, and platelet count is 181. Sodium 140, potassium 3.6, chloride 109, CO2 is 26, BUN is 24, and creatinine 0.81. Troponin is negative x2 sets. Cholesterol panel is pending. PHYSICAL EXAMINATION: VITAL SIGNS: Temperature is 36.6 degrees centigrade, pulse 74 beats per minute and regular, respiratory rate is 11 breaths per minute, blood pressure 106/70, and SaO2 is 97% on room air. GENERAL: NAD, overweight, awake, alert and oriented x3. HEENT: Mucous membranes moist. No scleral icterus. Conjunctivae pink. NECK: Supple without JVD or HJR. No carotid bruit. HEART: Regular with a normal S1 and S2. There is no murmur, rub, or gallop. LUNGS: Clear without rales, rhonchi or wheeze. ABDOMEN: Soft and nontender. No rebound or guarding. Normal bowel sounds. EXTREMITIES: Warm and dry. There is no clubbing, cyanosis, or edema. NEUROLOGIC: Demonstrates no focal motor deficit. FINAL IMPRESSION: 1. A 62-year-old female admitted with persistent left-sided chest and upper extremity discomfort, which is atypical for angina. 2. Family history of premature coronary artery disease. 3. History of depression and anxiety disorder. PLAN AND RECOMMENDATIONS: Exercise stress echocardiography will be performed for further evaluation of chest discomfort. Nitro paste has been removed due to headache and hypotension. We will continue to monitor blood pressure at this time. Await results of the fasting lipid panel for further risk stratification. Telemetry monitoring during observation. D-dimer ordered. Further recommendations pending result of stress test. Thank you for allowing me to take part in the care of your patient. VIPIN
[2017-09-17] MEDS ORDERED: DOBUTamine HCL 12.5 MG/ML 20 ML VIAL ONE (11:48)
[2017-09-17] MEDS ORDERED: METOPROLOL TARTRATE 1 MG/ML VIAL ONE (11:48)
[2017-09-17] MEDS ORDERED: ATROPINE SULFATE 0.1 MG/ML 5ML SYR ONE (11:48)
[2017-09-17] MEDS ORDERED: PERFLUTREN LIPID MICROSPHERE (DEFINITY) IV ONE (12:50)
--- NOTE | 2017-09-17 15:01 | DOBUTAMINE ECHO ---
*NOTICE TO RECEIVING [employer] This information is strictly Confidential and protected under [place] law. [place] law prohibits you from making any further disclosure of this information unless further disclosure is expressly permitted by the written consent of the person to whom it pertains or is authorized by law. A general authorization for the release of medical or other information is not sufficient for this purpose. Hospital accepts no responsibility if the information is made available to any other person, INCLUDING THE PATIENT. Interpretation Summary * Name: ANA PACHECO Study Date: 09/17/2017 11:56 AM BP: 110/87 mmHg * Patient Location: [facility]\S\N278\S\2 HR: 68 * : 1955 (M/d/yyyy) Gender: Female Height: 68 in * Age: 62 yrs Ethnicity: [place] Weight: 184 lb * Ordering Physician: Christian Munguia * Referring Physician: Self, Referred * Performed By: Marichuy De La Rosa RDCS * * Reason For Study: CHEST PAIN * BSA: 2.0 m2 * STRESS STUDY: Normal pharmacologic stress echocardiogram. No echocardiographic or ECG evidence of myocardial ischemia having achieved heart rate adequate for diagnostic purposes. * The study was technically adequate. Procedure Details * DOBUTAMINE ECHO, CPT#36213 * A contrast injection of Definity was performed to improve assessment of LV function. * Contrast was injected into an intravenous site in the right arm. * One vial of Definity ultrasound contrast was diluted in normal saline to a total volume of 10 ml. A total of '4' ml of solution was administered during imaging. * Lot # [id number] of Definity utilized for procedure. * Expiration date 1 DEC 02. * The attending nurse who injected the contrast agent was NIALL LAINEZ RN. Left Ventricle * Ejection Fraction = 60-65%. * The left ventricular ejection fraction increases normally with stress. The left ventricular end-systolic cavity size reduces post-stress (normal response). The left ventricular wall motion with stress is normal. * Resting wall motion: Normal. Stress wall motion: Appropriate increase in Left ventricular systolic function and decrease in cavity size. No stress induced segmental wall motion abnormalities. Stress Parameters * The baseline ECG displays normal sinus rhythm. * Stress ECG: No ST changes. No arrhythmias. * The stress portion of this study was personally supervised by the undersigned interpreting physician. * Rest heart rate was '68' BPM. * Rest blood pressure was '110/87' * Maximum heart rate achieved was 146 bpm. * Maximum blood pressure was '157/98' * Maximum Dobutamine infusion rate was '40' mcg/kg/min. * A total of .5 mg of intravenous Atropine was used to supplement Dobutamine for heart rate response. * Dobutamine infusion was terminated due to achieving target heart rate * A total of 5 mg of IV Metoprolol was administered to reverse Dobutamine-induced tachycardia. * Normal heart rate and blood pressure response to dobutamine infusion.
[2017-09-17] MEDS: ACETAMINOPHEN 325 MG TAB PO PRN (16:16)
--- NOTE | 2017-09-17 16:42 | EXERCISE STRESS ECHO ---
*NOTICE TO RECEIVING [employer] This information is strictly Confidential and protected under [place] law. [place] law prohibits you from making any further disclosure of this information unless further disclosure is expressly permitted by the written consent of the person to whom it pertains or is authorized by law. A general authorization for the release of medical or other information is not sufficient for this purpose. Hospital accepts no responsibility if the information is made available to any other person, INCLUDING THE PATIENT. Interpretation Summary * Name: ANA PACHECO Study Date: 09/17/2017 10:14 AM BP: 104/73 mmHg * Patient Location: [facility]\S\N278\S\2 HR: 69 * : 1955 (M/d/yyyy) Gender: Female Height: 68 in * Age: 62 yrs Ethnicity: [place] Weight: 184 lb * Ordering Physician: Christian Munguia * Referring Physician: Self, Referred * Performed By: Marichuy De La Rosa RDCS * * Reason For Study: CHEST PAIN * BSA: 2.0 m2 * PATIENT DID NOT REACH TARGET SO DOBUTAMINE WAS PERFORMED * No evidence of exercise induced ishemia at 77% of the maximal age-predicted heart rate. * Suboptimal stress test due to inadequate maximum heart rate. * -- Conclusions -- * Ejection Fraction = 60-65%. * There is borderline concentric left ventricular hypertrophy. * Resting wall motion: Normal. Stress wall motion: Appropriate increase in Left ventricular systolic function and decrease in cavity size. No stress induced segmental wall motion abnormalities. * There is trace mitral regurgitation. * There is mild tricuspid regurgitation. * Grade I diastolic dysfunction, (abnormal relaxation pattern). Procedure Details * ECHOEX, CPT #05169 * ECHO DOPPLER, CPT #[id number] * ECHO COLOR FLOW, CPT #[id number] Left Ventricle * The left ventricle is normal in size. * There is no thrombus. * There is borderline concentric left ventricular hypertrophy. * Ejection Fraction = 60-65%. * Left ventricular systolic function is normal. * Resting wall motion: Normal. Stress wall motion: Appropriate increase in Left ventricular systolic function and decrease in cavity size. No stress induced segmental wall motion abnormalities. Right Ventricle * The right ventricle is normal in size and function. Atria * The left atrial size is normal. * Right atrial size is normal. * No ASD detected; PFO is not assessed. Mitral Valve * The mitral valve is normal. * There is no mitral valve stenosis. * There is trace mitral regurgitation. Tricuspid Valve * The tricuspid valve is normal. * There is no tricuspid stenosis. * There is mild tricuspid regurgitation. * Doppler findings do not suggest pulmonary hypertension. Aortic Valve * The aortic valve is trileaflet. * No hemodynamically significant valvular aortic stenosis. * No aortic regurgitation is present. Pulmonic Valve * The pulmonary valve is inadequately visualized, but the Doppler data is adequate for interpretation. * Mild pulmonic valvular regurgitation. Great Vessels * The aortic root is normal size. Pericardium * There is no pericardial effusion. Stress Parameters * The baseline ECG displays normal sinus rhythm. * Stress ECG: No ST changes. No arrhythmias. * The stress portion of this study was personally supervised by the undersigned interpreting physician. * Rest heart rate was '69' BPM. * Rest blood pressure was '104/73' * Maximum heart rate achieved was 123 bpm. * Maximum blood pressure was '155/87' * Total exercise time was '7:15' * Maximum treadmill speed was '2.80' miles per hour. * Maximum treadmill elevation was '14'% grade. * Exercise was terminated due to 'FATIGUE' * Maximum heart rate was 77 % of maximum age-predicted heart rate. * Target Heart Rate was not achieved due to fatigue. * Normal blood pressure response to exercise. Left Ventricular Diastolic Function * Grade I diastolic dysfunction, (abnormal relaxation pattern). MMode 2D Measurements and Calculations IVSd 1.2 cm IVSs 1.9 cm LVIDd 4.0 cm LVIDs 2.7 cm LVPWd 1.1 cm LVPWs 1.8 cm IVS/LVPW 1.0 FS 31.8 % EDV(Teich) 69.4 ml ESV(Teich) 27.5 ml EF(Teich) 60.4 % EDV(cubed) 63.3 ml ESV(cubed) 20.1 ml EF(cubed) 68.2 % % IVS thick 57.1 % % LVPW thick 58.6 % LV mass(C)d 158.9 grams LV mass(C)dI 80.5 grams/m\S\2 LV mass(C)s 203.8 grams LV mass(C)sI 103.3 grams/m\S\2 SV(Teich) 41.9 ml SI(Teich) 21.2 ml/m\S\2 SV(cubed) 43.2 ml SI(cubed) 21.9 ml/m\S\2 Ao root diam 3.8 cm Ao root area 11.5 cm\S\2 LA dimension 3.0 cm LA/Ao 0.80 LVAd ap4 23.5 cm\S\2 LVLd ap4 7.7 cm EDV(MOD-sp4) 58.1 ml EDV(sp4-el) 61.0 ml LVAs ap4 13.1 cm\S\2 LVLs ap4 6.3 cm ESV(MOD-sp4) 22.1 ml ESV(sp4-el) 23.1 ml EF(MOD-sp4) 62.0 % EF(sp4-el) 62.1 % LVAd ap2 21.4 cm\S\2 LVLd ap2 7.6 cm EDV(MOD-sp2) 49.7 ml EDV(sp2-el) 51.1 ml LVAs ap2 12.1 cm\S\2 LVLs ap2 6.6 cm ESV(MOD-sp2) 19.2 ml ESV(sp2-el) 18.9 ml EF(MOD-sp2) 61.4 % EF(sp2-el) 63.1 % LVLd %diff -1.09 % EDV(MOD-bp) 54.0 ml LVLs %diff 4.8 % ESV(MOD-bp) 20.9 ml EF(MOD-bp) 61.3 % SV(MOD-sp4) 36.0 ml SI(MOD-sp4) 18.3 ml/m\S\2 SV(MOD-sp2) 30.5 ml SI(MOD-sp2) 15.5 ml/m\S\2 SV(MOD-bp) 33.1 ml SI(MOD-bp) 16.8 ml/m\S\2 SV(sp4-el) 37.9 ml SI(sp4-el) 19.2 ml/m\S\2 SV(sp2-el) 32.3 ml SI(sp2-el) 16.4 ml/m\S\2 Doppler Measurements and Calculations MV E max alley 65.4 cm/sec MV A max alley 56.3 cm/sec MV E/A 1.2 MV dec time 0.20 sec Ao V2 max 104.6 cm/sec Ao max PG 4.4 mmHg Ao max PG (full) 1.4 mmHg LV V1 max PG 2.9 mmHg LV V1 max 85.7 cm/sec TR max alley 224.4 cm/sec
--- NOTE | 2017-09-17 16:43 | Discharge Instructions ---
Discharge Instructions Date of Service Sep 17, 2017. Admission Reason for Admission: Chest Pain Discharge Discharge Diagnosis / Problem: CHEST PAIN /ATYPICAL NO EVIDENCE OF CORONARY DISEASE Discharge Goals Goal(s): Decrease discomfort, Increase independence, Improve disease control, Diagnostic testing, Therapeutic intervention Activity Recommendations Activity Limitations: resume your previous activity . Instructions / Follow-Up Instructions / Follow-Up HOSPITAL FOLLOW UP : 09/20/2017 1:00 PM Ang Morris MD [facility] Current Hospital Diet Patient's current hospital diet: AHA Diet (Heart Healthy) Discharge Diet Recommended Diet: AHA Diet (Heart Healthy) Pending Studies Studies pending at discharge: no Medical Emergencies . Who to Call and When: Medical Emergencies: If at any time you feel your situation is an emergency, please call 911 immediately. . Non-Emergent Contact Non-Emergency issues call your: Primary Care Provider . . "Provider Documentation" section prepared by Christiana Anderson. . VTE Core Measure Inpt VTE Proph given/why not?: Enoxaparin (Lovenox)SQ
[2017-09-17] MEDS: CLONAZEPAM 1 MG TAB PO SCH (20:32)
[2017-09-17] MEDS: QUETIAPINE FUMARATE 300 MG TAB PO SCH (20:33)
[2017-09-17] MEDS: ATORVASTATIN 40 MG TAB PO SCH (20:33)
--- NOTE | 2017-09-17 21:49 | Progress Note ---
Internal Med Progress Note Date of Service: Sep 17, 2017. Provider Documentation: SUBJECTIVE: mentions of having headache started in ER since started on Nitro patch -which is discontinued earlier no chest pain occasional SOB /palpitation admits of being anxious worried about going home with persisted headache and developing SOB aging OBJECTIVE: Vital Signs-as noted below Exam: General-anxious Eyes-sclera non icteric , PERRLA/EOMI ENT-moist oral mucosa , normal oropharynx Neck-no thyromegaly , trachea midline Lungs-clear to auscultate , no wheeze or rales Heart-regular S1/S2 , no JVD, no lower ext edema Abdomen-soft, non tender Extremities-no rash or edema Neuro-AAO x3, no focal neurological deficit Lab data as noted below. ASSESSMENT & PLAN: CHEST PAIN /ATYPICAL FOR ANGINAL presented with left sided chest heaviness with radiation to left arm shortness of breath appreciate input form Cardiology serial cardiac markers been negative EKG non ischemic Dobutamine stress test negative for stress induced ischemia SOB : still having intermittent symptom no palpitation or dizzy spell mentions of having panic attack in past but was never this persisted symptom continue home dose of Klonopin HS , Seroquel 300mg PO qHS , Elavil 10mg PO AM. PRN Ativan added for anxiety attack pt is counselled to have follow up with family physician for possible SSRI and counselling HEADACHE : persisted throbbing headache no visual symptom no photosensitivity possible due to Nitro paste -D/mario cont symptom management DVT PROPHYLAXIS sub q heparin DISPOSITION possible discharge home tomorrow if headache improves no further episode of SOB /MCLEAN Vital Signs: Date Time Temp Pulse Resp B/P (MAP) Pulse Ox O2 Delivery O2 Flow Rate FiO2 09/17/17 19:32 36.9 76 18 117/69 (85) 93 Room Air 09/17/17 16:00 96 Room Air 09/17/17 15:02 77 112/78 (89) 09/17/17 15:00 36.7 84 20 110/71 (84) 96 Room Air 09/17/17 13:19 Room Air 09/17/17 12:35 36.7 76 20 128/86 (100) 98 Room Air 09/17/17 09:16 68 11 97/65 (76) 97 Room Air 74 106/70 (82) 09/17/17 08:04 Room Air 09/17/17 07:41 36.6 52 20 93/63 (73) 94 Room Air 09/17/17 04:00 36.7 74 16 97/59 (72) 94 Room Air 09/17/17 04:00 Room Air 09/16/17 23:51 36.7 96 16 95/61 (72) 93 Room Air 09/16/17 23:25 Room Air Lab Results: Results Past 24 Hours Test 09/17/17 02:46 09/17/17 15:25 Range/Units White Blood Count 4.64 4.8-10.8 K/uL Red Blood Count 4.03 4.2-5.4 M/uL Hemoglobin 12.6 12.0-16.0 g/dL Hematocrit 37.6 37-47 % Mean Corpuscular Volume 93.3 80-100 fL Mean Corpuscular Hemoglobin 31.3 25-34 pg Mean Corpuscular Hemoglobin Concent 33.5 32-36 g/dl Platelet Count 181 130-400 K/uL Mean Platelet Volume 10.2 7.4-10.4 fL Neutrophils (%) (Auto) 45.3 % Lymphocytes (%) (Auto) 43.5 % Monocytes (%) (Auto) 6.9 % Eosinophils (%) (Auto) 3.9 % Basophils (%) (Auto) 0.2 % Neutrophils # (Auto) 2.10 1.4-6.5 K/uL Lymphocytes # (Auto) 2.02 1.2-3.4 K/uL Monocytes # (Auto) 0.32 0.11-0.59 K/uL Eosinophils # (Auto) 0.18 0-0.5 K/uL Basophils # (Auto) 0.01 0-0.2 K/uL RDW Standard Deviation 45.1 36.4-46.3 fL RDW Coefficient of Variation 13.2 11.5-14.5 % Immature Granulocyte % (Auto) 0.2 % Immature Granulocyte # (Auto) 0.01 0.00-0.02 K/uL Activated Partial Thromboplast Time 23.0 21.0-31.0 SECONDS Partial Thromboplastin Ratio 0.9 Sodium Level 140 136-145 mmol/L Potassium Level 3.6 3.5-5.1 mmol/L Chloride Level 109 98-107 mmol/L Carbon Dioxide Level 26 21-32 mmol/L Anion Gap 5.0 3-11 mmol/L Blood Urea Nitrogen 24 7-18 mg/dl Creatinine 0.81 0.60-1.20 mg/dl Est Creatinine Clear Calc Drug Dose 84.9 ml/min Estimated GFR () 91.5 Estimated GFR (Non- 78.9 BUN/Creatinine Ratio 29.0 10-20 Random Glucose 107 70-99 mg/dl Lactic Acid Level 1.2 0.4-2.0 mmol/L Calcium Level 8.6 8.5-10.1 mg/dl Troponin I < 0.015 0-0.045 ng/ml D-Dimer 260 0-500 ug/L FEU
[2017-09-18] VITALS: O2SAT 96
[2017-09-18 00:33] VITALS: BP 114/76; PULSE 76; TEMP 36.5; O2SAT 97
[2017-09-18 04:00] VITALS: O2SAT 96
[2017-09-18] MEDS: ACETAMINOPHEN 325 MG TAB PO PRN (07:12)
[2017-09-18 07:57] VITALS: BP 103/67; PULSE 69; TEMP 36.7; O2SAT 97
[2017-09-18] MEDS: AMITRIPTYLINE HCL 10 MG TAB PO SCH (08:11)
[2017-09-18] MEDS: ASPIRIN 81 MG ECTAB PO SCH (08:11)
[2017-09-18 10:45] VITALS: BP 103/67; PULSE 69; TEMP 36.7; O2SAT 97
--- NOTE | 2017-09-18 18:03 | Progress Note ---
Internal Med Progress Note Date of Service: Sep 18, 2017. Provider Documentation: SUBJECTIVE: says no headache since today morning and wants to go home no nausea afebrile resting comfortably OBJECTIVE: Vital Signs-as noted below Exam: General-alert and awake and oriented ENT-normal hearing Neck-no neck masses Lungs-cta b/l no wheezing or crackles Heart-s1 and s2 heard regular rate and rhythm no murmurs Abdomen-soft BS present non tender Extremities-no edema no erythema Neuro-alert and awake moves extremities Lab data as noted below. ASSESSMENT & PLAN: CHEST PAIN /ATYPICAL FOR ANGINAL presented with left sided chest heaviness with radiation to left arm serial CE and ekg unremarkable appreciate cardiology inputs Dobutamine stress test negative for stress induced ischemia SOB : intermittently continue home dose of Klonopin HS , Seroquel 300mg PO qHS , Elavil 10mg PO AM. PRN Ativan added for anxiety attack pt is counselled to have follow up with family physician for possible SSRI and counselling currently stable HEADACHE : persisted throbbing headache possible due to Nitro paste -D/mario resolved today discharged home Vital Signs: Date Time Temp Pulse Resp B/P (MAP) Pulse Ox O2 Delivery O2 Flow Rate FiO2 09/18/17 10:45 36.7 69 18 97 Room Air 09/18/17 07:57 36.7 69 18 103/67 (79) 97 Room Air 09/18/17 07:26 Room Air 09/18/17 04:00 96 Room Air 09/18/17 00:33 36.5 76 16 114/76 (89) 97 Room Air 09/18/17 00:00 96 Room Air 09/17/17 20:00 96 Room Air 09/17/17 19:32 36.9 76 18 117/69 (85) 93 Room Air
--- NOTE | 2017-09-18 18:12 | Discharge Summary ---
Discharge Summary Date of Service Sep 18, 2017. Discharge Summary Admission Date: Sep 16, 2017 at 16:36 Discharge Date: Sep 18, 2017 Discharge Disposition: Home Principal Diagnosis: CHEST PAIN' HEADACHE Secondary Diagnoses/Problems: (1) Appendectomy Status: Resolved (2) Asthma, Unspecified Status: Chronic (3) Cholecystectomy Status: Resolved (4) Depression Status: Chronic (5) Endometriosis Status: Chronic (6) Hypertension Nos Status: Chronic (7) Hysterectomy Status: Resolved (8) Laparoscopy Status: Resolved Procedures: CXR: No acute cardiopulmonary abnormality. DOBUTAMINE STRESS ECHO: Normal pharmacologic stress echocardiogram. No echocardiographic or ECG evidence of myocardial ischemia having achieved heart rate adequate for diagnostic purposes. * The study was technically adequate. 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 She had been working for 1.5 hours when pain came on. Pain was described as being in her L anterior chest with radiation down her R arm and into her hand. Numbness was present in the L hand. The pain lasted for 30 minutes and resolved spontaneously. It later came back and persisted until she arrived to the ER from PCP office. She was given nitro which took the pain away, but then came back mildly. She reports not being able to tolerate morphine or oxycodone (Percocet) in the past. She denies any associated symptoms of SOB, diaphoresis, headache, palpitations, nausea, vomiting, diarrhea. She reports having a stress test 3 years ago which she says was normal. Her father from an AL at age 63 yrs old and her brother from a cardiomyopathy at age 43. She denies any chest pain prior to today except in the distant past as a one time episode, not involving the arm. Physical Exam (per Admitting): General Appearance: WD/WN, no apparent distress Head: normocephalic, atraumatic Eyes: normal inspection, PERRL, sclerae normal ENT: hearing grossly normal, pharynx normal Neck: supple, no adenopathy, no JVD, trachea midline Respiratory/Chest: chest non-tender, lungs clear, normal breath sounds, no respiratory distress, no accessory muscle use Cardiovascular: regular rate, rhythm, no edema, no gallop, no JVD, no murmur , normal peripheral pulses Abdomen/GI: normal bowel sounds, non tender, soft Back: normal inspection Extremities/Musculoskelatal: normal inspection, no pedal edema, normal range of motion Neurologic/Psych: press cutter II-XII nml as tested, no motor/sensory deficits, alert , normal mood/affect, oriented x 3 Skin: normal color, warm/dry, no rash Hospital Course CHEST PAIN /ATYPICAL FOR ANGINAL presented with left sided chest heaviness with radiation to left arm serial CE and ekg unremarkable appreciate cardiology inputs Dobutamine stress test negative for stress induced ischemia SOB : intermittently continue home dose of Klonopin HS , Seroquel 300mg PO qHS , Elavil 10mg PO AM. PRN Ativan added for anxiety attack pt is counselled to have follow up with family physician for possible SSRI and counselling currently stable HEADACHE : persisted throbbing headache possible due to Nitro paste -D/mario resolved today discharged home Total time spent on discharge = 35MINUTES This includes examination of the patient, discharge planning, medication reconciliation, and communication with other providers. Discharge Instructions Discharge Instructions Date of Service Sep 17, 2017. Admission Reason for Admission: Chest Pain Discharge Discharge Diagnosis / Problem: CHEST PAIN /ATYPICAL NO EVIDENCE OF CORONARY DISEASE Discharge Goals Goal(s): Decrease discomfort, Increase independence, Improve disease control, Diagnostic testing, Therapeutic intervention Activity Recommendations Activity Limitations: resume your previous activity . Instructions / Follow-Up Instructions / Follow-Up HOSPITAL FOLLOW UP : 09/20/2017 1:00 PM Ang Morris MD Family Practice [facility] Current Hospital Diet Patient's current hospital diet: AHA Diet (Heart Healthy) Discharge Diet Recommended Diet: AHA Diet (Heart Healthy) Pending Studies Studies pending at discharge: no Medical Emergencies . Who to Call and When: Medical Emergencies: If at any time you feel your situation is an emergency, please call 911 immediately. . Non-Emergent Contact Non-Emergency issues call your: Primary Care Provider . . "Provider Documentation" section prepared by Christiana Anderson. . VTE Core Measure Inpt VTE Proph given/why not?: Enoxaparin (Lovenox)SQ
== END 2017-09-18 12:00 | disposition home or self-care (01) ==
LOC: C.EDB 13:52 → C.MED 16:36 → ENRESERV 18:08 → C.MS2W 09-17 16:29
PROVIDERS: ADMIT Hospitalist; ATTEND Internal Medicine
DX: R07.89 Other chest pain (principal); R51 Headache; I10 Essential (primary) hypertension; J45.909 Unspecified asthma, uncomplicated; F32.9 Major depressive disorder, single episode, unspecified; Z82.49 Family history of ischemic heart disease and other diseases of the circulatory system; Z79.82 Long term (current) use of aspirin; Z79.899 Other long term (current) drug therapy

== ENCOUNTER 2017-10-02 12:26 | Observation (INO) | payer BC ==
[~2017-10-02] VITALS: Ht 172.7 cm; Wt 83.8 kg
[~2017-10-02 12:26] MED LIST changes: -CLON1TAB3 PO; +KLN1 PO; +MIDRIN PO; -NITR1CAP16 PO; +QUET1TAB37 PO; -QUET400T PO
--- NOTE | 2017-10-02 12:39 | EMERGENCY ROOM VISIT NOTE ---
History Report prepared by Santi: Igor Espana Under the Supervision of: Dr. Ray Tidwell D.O. First contact with patient: 12:31 Chief Complaint: FLANK PAIN Stated Complaint: L SIDE PAIN History of Present Illness The patient is a 62 year old female who presents to the Emergency Room with complaints of left sided back pain that began at 8:30 am this morning with no prior episodes. Of note, the patient had a routine colonoscopy yesterday with a removal of a polyp. The patient endorses nausea. Movement does not change or modify the pain. Denies dysuria, hematuria, headache, and numbness in legs. Endorses cough and runny nose. The patient does not have a history of kidney stones. Of note, the patient has a surgical history of cholecystectomy and appendectomy. Source of History: patient Onset: 4 hours ago Position: back (lower, left flank) Timing: constant Associated Symptoms: + cough, + nausea, No headache, No urinary symptoms, No numbness (no numbness in legs) Review of Systems See HPI for pertinent positives & negatives. A total of 10 systems reviewed and were otherwise negative. Past Medical & Surgical Medical Problems: (1) Appendectomy (2) Asthma, Unspecified (3) Cholecystectomy (4) Depression (5) Endometriosis (6) Hypertension Nos (7) Hysterectomy (8) Laparoscopy (9) Renal calculi Family History Cancer Heart disease Hypertension Kidney disease Kidney stones Social History Smoking Status: Never Smoker Alcohol Use: none Drug Use: none Marital Status: Housing Status: lives with family Occupation Status: employed Current/Historical Medications Scheduled Amitriptyline Hcl (Elavil), 10 MG PO QAM Aspirin (Aspirin 81), 81 MG PO DAILY Clonazepam (Clonazepam), 2 MG PO HS Methylcellulose (Laxative) (Fiber Therapy), 1,000 MG PO DAILY Quetiapine Fumarate (Seroquel), 300 MG PO HS Allergies Coded Allergies: Sulfa Antibiotics (Verified Allergy, Unknown, unknown, 10/02/17) Sulfamethoxazole (Verified Allergy, Unknown, 10/02/17) Physical Exam Vital Signs Date Time Temp Pulse Resp B/P (MAP) Pulse Ox O2 Delivery O2 Flow Rate FiO2 10/02/17 15:54 88 18 153/98 95 Nasal Cannula 2.0 10/02/17 15:53 95 Nasal Cannula 2.0 10/02/17 15:35 87 154/93 96 Room Air 10/02/17 14:01 82 160/101 94 Room Air 10/02/17 12:28 36.3 105 19 176/99 97 Room Air Physical Exam GENERAL: Sitting up in bed, dishevelled, clutching left flank EYE EXAM: normal conjunctiva. PERRL and EOM's grossly intact. OROPHARYNX: no exudate, no erythema, lips, buccal mucosa, and tongue normal and mucous membranes are moist NECK: supple, no nuchal rigidity, no adenopathy, non-tender LUNGS: Clear to auscultation. Normal chest wall mechanics HEART: no murmurs, S1 normal and S2 normal, hypertensive ABDOMEN: abdomen soft, non-tender, normo-active bowel sounds, no masses, no rebound or guarding. tender to palpation in left upper quadrant BACK: Back is symmetrical on inspection and there is no deformity, no midline tenderness, no CVA tenderness. SKIN: no rashes and no bruising UPPER EXTREMITIES: upper extremities are grossly normal. LOWER EXTREMITIES: No pitting edema. NEURO EXAM: Normal sensorium, cranial nerves II-XII grossly intact, normal speech, no gross weakness of arms, no gross weakness of legs. Medical Decision & Procedures ER Provider Diagnostic Interpretation: Radiology results as stated below per my review and the radiologist's interpretation: CT ANGIOGRAPHY AND VENOGRAPHY OF THE ABDOMEN WITH CONTRAST CLINICAL HISTORY: Abnormal CT scan. COMPARISON STUDY: CT of the abdomen and pelvis October 02, 2017. TECHNIQUE: Helical axial images of the abdomen were obtained during arterial and venous phase. Injection 115 cc of Optiray 320 IV was uneventful. Sagittal and coronal reconstructions were viewed as well as maximal intensity projections on an independent 3-D workstation. FINDINGS: The liver, spleen, adrenal gland, right kidney and pancreas are normal. The gallbladder is surgically absent. There is no biliary ductal dilatation. There is no peripancreatic infiltration. Moderate left hydronephrosis is unchanged since prior CT. There is moderate left perinephric infiltration. The left renal vein is patent. The left renal artery is patent. No vascular abnormality of the left kidney is identified by CT. Note is made of a 1.3 cm splenic artery aneurysm without rupture. There is moderate atherosclerotic plaque of the splenic artery. IMPRESSION: 1. No vascular abnormality of the left kidney. Specifically, no evidence for renal vein thrombosis. No left renal artery abnormality. Left perinephric infiltration is due to the obstruction as shown on CT from earlier today. Persistent moderate left hydronephrosis. Delayed nephrogram due to the obstruction. 2. 1.3 cm splenic artery aneurysm. No evidence for rupture. Electronically signed by: Colin Reyes M.D. 10/02/2017 3:[address] SCAN OF THE ABDOMEN AND PELVIS WITHOUT CONTRAST CLINICAL HISTORY: L flank pain HISTORY OF RECENT COLONOSCOPY COMPARISON STUDY: No previous studies for comparison. TECHNIQUE: CT scan of the abdomen and pelvis was performed from the lung bases to the proximal femurs. Images are reviewed in the axial, sagittal, and coronal planes. IV contrast was not administered for this examination. A dose lowering technique was utilized adhering to the principles of ALARA. CT DOSE: 975.40 mGycm FINDINGS: Lower chest: The heart is normal in size and configuration, without pericardial effusion. The lung bases and pleural spaces are clear. Liver: The unenhanced liver is normal in size, contour, and attenuation. There is no intrahepatic biliary ductal dilatation. Gallbladder: Surgically absent Spleen: Normal in size and attenuation. Pancreas: Unremarkable. Adrenal glands: Unremarkable. Kidneys: There is a 4 mm calculus at the level the left ureterovesical junction with secondary obstructive changes. Multiple left renal calculi are visualized. There is unusual infiltration of the perinephric fat surrounding the left renal artery and vein. This is not the typical pattern of perinephric infiltration one sees with renal obstruction. Associated vascular abnormality of the renal artery or vein cannot be excluded. CT angiography including a venous phase might be considered in follow-up. Bowel: There are no transition zones indicate bowel obstruction. There are no extraluminal gas collections. There is no pneumatosis. There is no acute diverticulitis. By history the appendix is surgically absent Peritoneum: There is no intraperitoneal free air or abdominal ascites. Vasculature: The abdominal aorta is normal in course and caliber. Adenopathy: None. Pelvic viscera: The uterus is surgically absent Skeletal structures: No destructive osseous lesions are seen. IMPRESSION: 1. Left-sided nephrolithiasis 2. 4 mm calculus at the level the left ureterovesical junction with secondary obstructive changes 3. No evidence of bowel obstruction. No evidence of free air. 4. Unusual infiltration the perinephric fat surrounding the left renal artery and vein, at the hilar level.. This is not the typical pattern of perinephric infiltration one sees with renal obstruction. A coexistent vascular abnormality of the renal artery or vein cannot be excluded. If clinically indicated, CT angiography including a venous phase might be considered in follow-up. Electronically signed by: Emanuel Brantley M.D. 10/02/2017 2:04 PM Laboratory Results 10/02/17 13:00 Red Blood Count 4.44, Mean Corpuscular Volume 90.5, Mean Corpuscular Hemoglobin 31.5, Mean Corpuscular Hemoglobin Concent 34.8, Mean Platelet Volume 10.2, Neutrophils (%) (Auto) 75.6, Lymphocytes (%) (Auto) 15.1, Monocytes (%) (Auto) 7.5, Eosinophils (%) (Auto) 1.5, Basophils (%) (Auto) 0.1, Neutrophils # (Auto) 6.17, Lymphocytes # (Auto) 1.23, Monocytes # (Auto) 0.61, Eosinophils # (Auto) 0.12, Basophils # (Auto) 0.01 10/02/17 13:00 Test 10/02/17 13:00 10/02/17 13:55 White Blood Count 8.16 K/uL (4.8-10.8) Red Blood Count 4.44 M/uL (4.2-5.4) Hemoglobin 14.0 g/dL (12.0-16.0) Hematocrit 40.2 % (37-47) Mean Corpuscular Volume 90.5 fL (80-100) Mean Corpuscular Hemoglobin 31.5 pg (25-34) Mean Corpuscular Hemoglobin Concent 34.8 g/dl (32-36) Platelet Count 206 K/uL (130-400) Mean Platelet Volume 10.2 fL (7.4-10.4) Neutrophils (%) (Auto) 75.6 % Lymphocytes (%) (Auto) 15.1 % Monocytes (%) (Auto) 7.5 % Eosinophils (%) (Auto) 1.5 % Basophils (%) (Auto) 0.1 % Neutrophils # (Auto) 6.17 K/uL (1.4-6.5) Lymphocytes # (Auto) 1.23 K/uL (1.2-3.4) Monocytes # (Auto) 0.61 K/uL (0.11-0.59) Eosinophils # (Auto) 0.12 K/uL (0-0.5) Basophils # (Auto) 0.01 K/uL (0-0.2) RDW Standard Deviation 42.8 fL (36.4-46.3) RDW Coefficient of Variation 13.0 % (11.5-14.5) Immature Granulocyte % (Auto) 0.2 % Immature Granulocyte # (Auto) 0.02 K/uL (0.00-0.02) Anion Gap 9.0 mmol/L (3-11) Est Creatinine Clear Calc Drug Dose 55.6 ml/min Estimated GFR () 55.8 Estimated GFR (Non- 48.1 BUN/Creatinine Ratio 17.3 (10-20) Calcium Level 9.1 mg/dl (8.5-10.1) Total Bilirubin 0.6 mg/dl (0.2-1) Direct Bilirubin 0.2 mg/dl (0-0.2) Aspartate Amino Transf (AST/SGOT) 18 U/L (15-37) Alanine Aminotransferase (ALT/SGPT) 32 U/L (12-78) Alkaline Phosphatase 142 U/L (45-117) Total Protein 7.3 gm/dl (6.4-8.2) Albumin 4.3 gm/dl (3.4-5.0) Lipase 125 U/L (73-393) Urine Color ORANGE Urine Appearance TURBID (CLEAR) Urine pH 5.0 (4.5-7.5) Urine Specific [place] 1.039 (1.000-1.030) Urine Protein 2+ (NEG) Urine Glucose (UA) NEG (NEG) Urine Ketones TRACE (NEG) Urine Occult Blood 3+ (NEG) Urine Nitrite NEG (NEG) Urine Bilirubin NEG (NEG) Urine Urobilinogen NEG (NEG) Urine Leukocyte Esterase SMALL (NEG) Urine WBC (Auto) >30 /hpf (0-5) Urine RBC (Auto) >30 /hpf (0-4) Urine Hyaline Casts (Auto) 1-5 /lpf (0-5) Urine Epithelial Cells (Auto) >30 /lpf (0-5) Urine Bacteria (Auto) NEG (NEG) Urine Crystals CALCIUM OXALATE (NONE Urine Pathogenic Casts /lpf (0) Laboratory results per my review. Medications Administered Medications (Trade) Dose Ordered Sig/Maria Dolores Route Start Time Stop Time Status Last Admin Dose Admin Sodium Chloride 500 ml @ 999 mls/hr Q31M STAT IV 10/02/17 12:40 10/02/17 13:10 DC 10/02/17 13:09 999 MLS/HR Ondansetron HCl (Zofran Inj) 4 mg NOW STAT IV 10/02/17 12:40 10/02/17 12:41 DC 10/02/17 13:09 4 MG Morphine Sulfate (MoRPHine SULFATE INJ) 4 mg NOW STAT IV 10/02/17 12:41 10/02/17 12:42 DC 10/02/17 13:09 4 MG Morphine Sulfate (MoRPHine SULFATE INJ) 6 mg NOW STAT IV 10/02/17 13:51 10/02/17 13:52 DC 10/02/17 14:00 6 MG Morphine Sulfate (MoRPHine SULFATE INJ) 6 mg NOW STAT IV 10/02/17 15:49 10/02/17 15:50 DC 10/02/17 16:00 6 MG Ondansetron HCl (Zofran Inj) 4 mg NOW STAT IV 10/02/17 15:49 10/02/17 15:51 DC 10/02/17 15:59 4 MG ED Course ED COURSE: Vital signs were reviewed and showed situational hypertension. The patients medical record was reviewed The above diagnostic studies were performed and reviewed. ED treatments and interventions as stated above. Mable Hinkle: The patient was evaluated in room A12. A complete history and physical examination was performed. 1525: The patient was nauseous. 1549: The patient is hypoxic and feels increasing pain; I administered additional pain medication. Upon reevaluation, the patient is comfortable.I discussed my findings with the patient and she understands and agrees with the treatment plan. Based on the patients age, coexisting illnesses, exam and lab findings the decision to treat as an inpatient was made. The patient remained stable while under my care. The patient will be evaluated for further management. Medical Decision Differential diagnoses includes but is not limited to gastritis, peptic ulcer disease, GERD, gallbladder disease, pancreatitis, small bowel obstruction, acute coronary syndrome, pericarditis, ischemic bowel, irritable bowel disease, irritable bowel syndrome, appendicitis, diverticulitis, malignancy, hernia, urinary tract infection, torsion, /ectopic (if female), perforation, trauma, infectious. Patient is a 62-year-old female who presents to ER for abdominal pain. She describes it as severe left flank pain. She has a nausea and vomiting. CBC all BMP, LFTs, bilirubin lipase is normal. UA was contaminated. CT of the abdomen and pelvis shows significant amount hydro-with questionable infiltration of the renal vein. Secondary to this a CT angiogram of the abdomen was performed focused on the renal system. This is unremarkable. Patient got 3 doses of IV narcotics. She continued to be uncomfortable. Pulse ox dropped to 80%. She is placed on nasal cannula. Following this she was admitted to internal medicine for renal colic with hydronephrosis. Medication Reconcilliation Current Medication List: was personally reviewed by me Blood Pressure Screening Patient's blood pressure: Normal blood pressure Impression Primary Impression: Renal calculi Additional Impression: Hydronephrosis Scribe Attestation The scribe's documentation has been prepared under my direction and personally reviewed by me in its entirety. I confirm that the note above accurately reflects all work, treatment, procedures, and medical decision making performed by me. Departure Information Referrals Ang Morris M.D. (PCP) Patient Instructions My [facility] Problem Qualifiers Additional Impression: Hydronephrosis Hydronephrosis type: unspecified Qualified Codes: N13.30 - Unspecified hydronephrosis
[2017-10-02] MEDS ORDERED: SODIUM CHLORIDE 0.9% 500ML 500 ML IV STA (12:40)
[2017-10-02] MEDS ORDERED: ONDANSETRON INJ 2 MG/ML 2 ML VIAL IV STA ×2 (12:40→15:49)
[2017-10-02] MEDS ORDERED: MoRPHine SULFATE 4 MG/ML 1 ML CARP\\VIAL IV STA (12:41)
[2017-10-02 13:09] LABS: BASO % 0.1 %; BASO ABS # 0.01 K/uL (0-0.2); EOS % 1.5 %; EOS ABS # 0.12 K/uL (0-0.5); HEMATOCRIT 40.2 % (37-47); IG# 0.02 K/uL (0.00-0.02); LYMPH % 15.1 %; LYMPH ABS # 1.23 K/uL (1.2-3.4); MEAN CELL VOLUME 90.5 fL (80-100); MEAN CORPUSCULAR HEMOGLOBIN 31.5 pg (25-34); MEAN CORPUSCULAR HGB CONC 34.8 g/dl (32-36); MEAN PLATELET VOLUME 10.2 fL (7.4-10.4); MONO % 7.5 %; MONO ABS # 0.61 K/uL (0.11-0.59); NEUT % 75.6 %; NEUT ABS # 6.17 K/uL (1.4-6.5); PLATELET COUNT 206 K/uL (130-400); RED CELL DISTRIBUTION WIDTH SD 42.8 fL (36.4-46.3); WHITE BLOOD COUNT 8.16 K/uL (4.8-10.8)
[2017-10-02 13:27] LABS: ALBUMIN 4.3 gm/dl (3.4-5.0); CALCIUM 9.1 mg/dl (8.5-10.1); CREATININE 1.22 mg/dl (0.60-1.20); POTASSIUM 3.7 mmol/L (3.5-5.1)
[2017-10-02 13:32] LABS: TOTAL PROTEIN 7.3 gm/dl (6.4-8.2)
[2017-10-02] MEDS ORDERED: MoRPHine SULFATE 10 MG/ML CARP/VIAL IV STA ×2 (13:51→15:49)
--- NOTE | 2017-10-02 14:05 | DIAGNOSTIC IMAGING REPORT ---
CT SCAN OF THE ABDOMEN AND PELVIS WITHOUT CONTRAST CLINICAL HISTORY: L flank pain HISTORY OF RECENT COLONOSCOPY COMPARISON STUDY: No previous studies for comparison. TECHNIQUE: CT scan of the abdomen and pelvis was performed from the lung bases to the proximal femurs. Images are reviewed in the axial, sagittal, and coronal planes. IV contrast was not administered for this examination. A dose lowering technique was utilized adhering to the principles of ALARA. CT DOSE: 975.40 mGycm FINDINGS: Lower chest: The heart is normal in size and configuration, without pericardial effusion. The lung bases and pleural spaces are clear. Liver: The unenhanced liver is normal in size, contour, and attenuation. There is no intrahepatic biliary ductal dilatation. Gallbladder: Surgically absent Spleen: Normal in size and attenuation. Pancreas: Unremarkable. Adrenal glands: Unremarkable. Kidneys: There is a 4 mm calculus at the level the left ureterovesical junction with secondary obstructive changes. Multiple left renal calculi are visualized. There is unusual infiltration of the perinephric fat surrounding the left renal artery and vein. This is not the typical pattern of perinephric infiltration one sees with renal obstruction. Associated vascular abnormality of the renal artery or vein cannot be excluded. CT angiography including a venous phase might be considered in follow-up. Bowel: There are no transition zones indicate bowel obstruction. There are no extraluminal gas collections. There is no pneumatosis. There is no acute diverticulitis. By history the appendix is surgically absent Peritoneum: There is no intraperitoneal free air or abdominal ascites. Vasculature: The abdominal aorta is normal in course and caliber. Adenopathy: None. Pelvic viscera: The uterus is surgically absent Skeletal structures: No destructive osseous lesions are seen. IMPRESSION: 1. Left-sided nephrolithiasis 2. 4 mm calculus at the level the left ureterovesical junction with secondary obstructive changes 3. No evidence of bowel obstruction. No evidence of free air. 4. Unusual infiltration the perinephric fat surrounding the left renal artery and vein, at the hilar level.. This is not the typical pattern of perinephric infiltration one sees with renal obstruction. A coexistent vascular abnormality of the renal artery or vein cannot be excluded. If clinically indicated, CT angiography including a venous phase might be considered in follow-up. Electronically signed by: Emanuel Brantley M.D. 10/02/2017 2:04 PM Dictated Date/Time: 10/02/2017 1:50 PM
[2017-10-02] MEDS ORDERED: OPTIRAY 320 IV PRN (14:45)
--- NOTE | 2017-10-02 15:41 | DIAGNOSTIC IMAGING REPORT ---
CT ANGIOGRAPHY AND VENOGRAPHY OF THE ABDOMEN WITH CONTRAST CLINICAL HISTORY: Abnormal CT scan. COMPARISON STUDY: CT of the abdomen and pelvis October 02, 2017. TECHNIQUE: Helical axial images of the abdomen were obtained during arterial and venous phase. Injection 115 cc of Optiray 320 IV was uneventful. Sagittal and coronal reconstructions were viewed as well as maximal intensity projections on an independent 3-D workstation. FINDINGS: The liver, spleen, adrenal gland, right kidney and pancreas are normal. The gallbladder is surgically absent. There is no biliary ductal dilatation. There is no peripancreatic infiltration. Moderate left hydronephrosis is unchanged since prior CT. There is moderate left perinephric infiltration. The left renal vein is patent. The left renal artery is patent. No vascular abnormality of the left kidney is identified by CT. Note is made of a 1.3 cm splenic artery aneurysm without rupture. There is moderate atherosclerotic plaque of the splenic artery. IMPRESSION: 1. No vascular abnormality of the left kidney. Specifically, no evidence for renal vein thrombosis. No left renal artery abnormality. Left perinephric infiltration is due to the obstruction as shown on CT from earlier today. Persistent moderate left hydronephrosis. Delayed nephrogram due to the obstruction. 2. 1.3 cm splenic artery aneurysm. No evidence for rupture. Electronically signed by: Colin Reyes M.D. 10/02/2017 3:40 PM Dictated Date/Time: 10/02/2017 3:17 PM
--- NOTE | 2017-10-02 17:17 | History and Physical ---
History & Physical Date & Time of Service: Oct 02, 2017 at 17:10 Chief Complaint: L Side Pain Primary Care Physician: Ang Morris M.D. History of Present Illness Source: patient The patient is a 62 year old female with PMH of colonoscopy on 10/01/17 yesterday for polypectomy at [facility] and when sent home she went to sleep and awoke the next morning at home on 10/02/17 with left sided back pain. Patient was presented to the emergency room and found to have on imaging of CT abdomen/pelvis of Left-sided nephrolithiasis and 2. 4 mm calculus at the level the left ureterovesical junction with secondary obstructive changes. Additional CTA of left kidney vasculature was performed but no additional abnormal findings. As per Emergency room evaluation, patient requires further hospital care for pain control and hypoxia. She is seen and examined by the hospitalist admitting physician while breathing on nasal cannula without acute distress breathing in full sentences. She denies acute pain at the moment but she has recently received pain mediations. On exam there is no acute costovertebral angle tenderness but she reports pain localized more the the left hip which has some tenderness on palpation. When patient was on the medical [place], patient had nasal cannula removed and saturating above 97% on room air Past surgical history of cholecystectomy and appendectomy Patient reports sulfa allergies that leads to rash Past Medical/Surgical History Medical Problems: (1) Appendectomy Status: Resolved (2) Asthma, Unspecified Status: Chronic (3) Cholecystectomy Status: Resolved (4) Depression Status: Chronic (5) Endometriosis Status: Chronic (6) Hypertension Nos Status: Chronic (7) Hysterectomy Status: Resolved (8) Laparoscopy Status: Resolved Family History Cancer Heart disease Hypertension Kidney disease Kidney stones MOTHER Social History Smoking Status: Never Smoker Drug Use: none Marital Status: Housing status: lives with family Occupational Status: employed Immunizations History of Influenza Vaccine: N/A History of Tetanus Vaccine?: UTD Tetanus Immunization Date: March 05, 2004 History of Pneumococcal: No History of Hepatitis B Vaccine: Yes Hepatitis Immunization Date: March 05, 2006 Multi-Drug Resistant Organisms History of MDRO: No Allergies Coded Allergies: Sulfa Antibiotics (Verified Allergy, Unknown, unknown, 10/02/17) Sulfamethoxazole (Verified Allergy, Unknown, 10/02/17) Home Medications Scheduled Amitriptyline Hcl (Elavil), 10 MG PO QAM Aspirin (Aspirin 81), 81 MG PO DAILY Clonazepam (Clonazepam), 2 MG PO HS Methylcellulose (Laxative) (Fiber Therapy), 1,000 MG PO DAILY Quetiapine Fumarate (Seroquel), 300 MG PO HS Review of Systems Constitutional: No fever Eyes: No worsening of vision, No eye pain, No redness, No discharge, No diplopia, No problem reported ENT: No hearing loss, No sore throat, No trouble swallowing Respiratory: No cough, No wheezing, No shortness of breath Cardiovascular: No chest pain, No edema, No palpitations Abdomen: + pain (left sided pain), No nausea, No vomiting Genitourinary - Female: No dysuria Neurologic: No numbness/tingling Psychiatric: No substance abuse Endocrine: No fatigue Hematologic / Lymphatic: No abnormal bleeding/bruising Integumentary: No rash Physical Exam Vital Signs Date Time Temp Pulse Resp B/P (MAP) Pulse Ox O2 Delivery O2 Flow Rate FiO2 10/02/17 15:54 88 18 153/98 95 Nasal Cannula 2.0 10/02/17 15:53 95 Nasal Cannula 2.0 10/02/17 15:35 87 154/93 96 Room Air 10/02/17 14:01 82 160/101 94 Room Air 10/02/17 12:28 36.3 105 19 176/99 97 Room Air General Appearance: no apparent distress Head: normocephalic, atraumatic Eyes: normal inspection, EOMI ENT: normal ENT inspection, hearing grossly normal, pharynx normal Neck: supple, no adenopathy, no JVD, trachea midline Respiratory/Chest: chest non-tender, lungs clear, normal breath sounds, no respiratory distress, no accessory muscle use, + pertinent finding (on nasal cannula) Cardiovascular: regular rate, rhythm, no edema, no JVD Abdomen/GI: normal bowel sounds, non tender, soft, no organomegaly Back: normal inspection, no CVA tenderness, no muscle spasm, + pertinent finding (left hip tenderness) Extremities/Musculoskelatal: normal inspection, no calf tenderness, no pedal edema, normal range of motion Neurologic/Psych: no motor/sensory deficits, alert, oriented x 3 Skin: normal color, warm/dry, no rash Diagnostics Laboratory Results Results Past 24 Hours Test 10/02/17 13:00 10/02/17 13:55 Range/Units White Blood Count 8.16 4.8-10.8 K/uL Red Blood Count 4.44 4.2-5.4 M/uL Hemoglobin 14.0 12.0-16.0 g/dL Hematocrit 40.2 37-47 % Mean Corpuscular Volume 90.5 80-100 fL Mean Corpuscular Hemoglobin 31.5 25-34 pg Mean Corpuscular Hemoglobin Concent 34.8 32-36 g/dl Platelet Count 206 130-400 K/uL Mean Platelet Volume 10.2 7.4-10.4 fL Neutrophils (%) (Auto) 75.6 % Lymphocytes (%) (Auto) 15.1 % Monocytes (%) (Auto) 7.5 % Eosinophils (%) (Auto) 1.5 % Basophils (%) (Auto) 0.1 % Neutrophils # (Auto) 6.17 1.4-6.5 K/uL Lymphocytes # (Auto) 1.23 1.2-3.4 K/uL Monocytes # (Auto) 0.61 0.11-0.59 K/uL Eosinophils # (Auto) 0.12 0-0.5 K/uL Basophils # (Auto) 0.01 0-0.2 K/uL RDW Standard Deviation 42.8 36.4-46.3 fL RDW Coefficient of Variation 13.0 11.5-14.5 % Immature Granulocyte % (Auto) 0.2 % Immature Granulocyte # (Auto) 0.02 0.00-0.02 K/uL Sodium Level 139 136-145 mmol/L Potassium Level 3.7 3.5-5.1 mmol/L Chloride Level 108 98-107 mmol/L Carbon Dioxide Level 22 21-32 mmol/L Anion Gap 9.0 3-11 mmol/L Blood Urea Nitrogen 21 7-18 mg/dl Creatinine 1.22 0.60-1.20 mg/dl Est Creatinine Clear Calc Drug Dose 55.6 ml/min Estimated GFR () 55.8 Estimated GFR (Non- 48.1 BUN/Creatinine Ratio 17.3 10-20 Random Glucose 128 70-99 mg/dl Calcium Level 9.1 8.5-10.1 mg/dl Total Bilirubin 0.6 0.2-1 mg/dl Direct Bilirubin 0.2 0-0.2 mg/dl Aspartate Amino Transf (AST/SGOT) 18 15-37 U/L Alanine Aminotransferase (ALT/SGPT) 32 12-78 U/L Alkaline Phosphatase 142 45-117 U/L Total Protein 7.3 6.4-8.2 gm/dl Albumin 4.3 3.4-5.0 gm/dl Lipase 125 73-393 U/L Urine Color ORANGE Urine Appearance TURBID CLEAR Urine pH 5.0 4.5-7.5 Urine Specific [place] 1.039 1.000-1.030 Urine Protein 2+ NEG Urine Glucose (UA) NEG NEG Urine Ketones TRACE NEG Urine Occult Blood 3+ NEG Urine Nitrite NEG NEG Urine Bilirubin NEG NEG Urine Urobilinogen NEG NEG Urine Leukocyte Esterase SMALL NEG Urine WBC (Auto) >30 0-5 /hpf Urine RBC (Auto) >30 0-4 /hpf Urine Hyaline Casts (Auto) 1-5 0-5 /lpf Urine Epithelial Cells (Auto) >30 0-5 /lpf Urine Bacteria (Auto) NEG NEG Urine Crystals CALCIUM OXALATE NONE PRSENT Urine Pathogenic Casts 0 /lpf Microbiology Results 10/02/17 Urine Culture, Received Pending Diagnostic Radiology 1. Left-sided nephrolithiasis 2. 4 mm calculus at the level the left ureterovesical junction with secondary obstructive changes 3. No evidence of bowel obstruction. No evidence of free air. 4. Unusual infiltration the perinephric fat surrounding the left renal artery and vein, at the hilar level.. This is not the typical pattern of perinephric infiltration one sees with renal obstruction. A coexistent vascular abnormality of the renal artery or vein cannot be excluded. If clinically indicated, CT angiography including a venous phase might be considered in follow-up. CTA angio 1. No vascular abnormality of the left kidney. Specifically, no evidence for renal vein thrombosis. No left renal artery abnormality. Left perinephric infiltration is due to the obstruction as shown on CT from earlier today.Persistent moderate left hydronephrosis. Delayed nephrogram due to the obstruction. 2. 1.3 cm splenic artery aneurysm. No evidence for rupture. Impression Assessment and Plan CT abdomen/pelvis of Left-sided nephrolithiasis and 2. 4 mm calculus at the level the left ureterovesical junction with secondary obstructive changes -left sided hip pain likely referred pain from left kidney stone -pain medication - dilaudid 1 mg q6 hour prn for pain -monitor for sedation -Tamsulosin -IV Benadryl prn for allergy as patient reportedly has had rashes from sulfa medication in the past and there may be some sulfa content in Tamsulosin -Urology evaluation on 10/03/17 Hypoxia in the Emergency room -likely from sedation from morphine -hypoxia has resolved and patient seen saturating above 97% on room air History of mood disorder -continue home dose sertraline -continue home dose clonazepam History of Migraine headaches -continue home dose amitriptyline DVT ppx: SCD Level of Care Med/Surg Resuscitation Status FULL RESUSCITATION VTE Prophylaxis VTE Risk Assessment Done? Y/N: Yes Risk Level: Moderate Given or contraindicated: SCD's
[2017-10-02 17:20] VITALS: BP 158/100; PULSE 88; TEMP 36.3; O2SAT 100; Ht 172.7 cm; Wt 83.8 kg
[2017-10-02 17:28] VITALS: O2SAT 96
[2017-10-02] MEDS ORDERED: TAMSULOSIN HCL 0.4 MG CAP PO ONE (17:30)
[2017-10-02] MEDS ORDERED: DiphenhydrAMINE HCL 50 MG/ML VIAL IV PRN (17:30)
[2017-10-02] MEDS: HYDROmorphone INJ 1 MG/ML SYR IV PRN (19:31)
[2017-10-02] MEDS: ONDANSETRON INJ 2 MG/ML 2 ML VIAL IV PRN (19:34)
--- NOTE | 2017-10-02 20:00 | NUR ---
Obs note: Pt A&Ox4. Saline locked in right hand, site clear. Lungs clear bilaterally on RA. C/O pain to left flank area, pain medication administered prn. Pt is N/V green emesis. Refused regular diet, wanted crackers and gingerale. OOB independent ad bryan, gait steady. Call peterson in reach. Will continue to monitor.
--- NOTE | 2017-10-02 20:09 | DIAGNOSTIC IMAGING REPORT ---
CHEST 2 VIEWS ROUTINE HISTORY: 62 years-old Female hypoxia in the ER acute hypoxia COMPARISON: Chest radiograph 09/16/2017 TECHNIQUE: PA and lateral views of the chest FINDINGS: Patient is rotated to the right. Cardiomediastinal and hilar silhouettes are within normal limits. No pneumothorax, pleural effusion, focal airspace consolidation or overt pulmonary edema. The bones appear mildly demineralized. Surgical clips of the upper abdomen suggest prior cholecystectomy. Atherosclerosis of the aorta. Facet arthropathy of the imaged lower cervical spine. IMPRESSION: No acute cardiopulmonary process. The above report was generated using voice recognition software. It may contain grammatical, syntax or spelling errors. Electronically signed by: Regino Catherine M.D. 10/02/2017 8:08 PM Dictated Date/Time: 10/02/2017 8:06 PM
[2017-10-02] MEDS: QUETIAPINE FUMARATE 300 MG TAB PO SCH (20:40)
[2017-10-02] MEDS: CLONAZEPAM 1 MG TAB PO SCH (20:43)
[2017-10-02] MEDS ORDERED: IV FLUIDS COMPLETED PRN (22:00)
[2017-10-02 23:25] VITALS: BP 131/87; PULSE 80; TEMP 36.7; O2SAT 95
--- NOTE | 2017-10-03 | NUR ---
OBS NOTE: Patient is alert and oriented x4. She is tolerating elie jericho and crackers at this time; ordered a regular diet. She is independent in the room. Patients IV site is intact and saline locked at this time. Pain is controlled with PRN pain medications per MD orders. Call peterson and bedside table are within reach; she has been encouraged to ring for assistance. Please refer to EMR for further assessment details. D/C uncertain at this time.
[2017-10-03] MEDS: ONDANSETRON INJ 2 MG/ML 2 ML VIAL IV PRN ×2 (02:51→18:09)
[2017-10-03] MEDS: HYDROmorphone INJ 1 MG/ML SYR IV PRN (02:54)
--- NOTE | 2017-10-03 04:00 | NUR ---
OBS NOTE: Patient assessment unchanged from previous obs note; patient is resting comfortably in bed at this time. Will continue to monitor.
--- NOTE | 2017-10-03 04:49 | NUR ---
ID NOTE: Patient is alert and oriented x4. She is tolerating elie jericho and crackers at this time; ordered a regular diet. She is independent in the room. Patients IV site is intact and saline locked at this time. Pain is controlled with PRN pain medications per MD orders. Call peterson and bedside table are within reach; she has been encouraged to ring for assistance. D/C uncertain at this time.
[2017-10-03 06:53] VITALS: BP 124/83; PULSE 84; TEMP 37; O2SAT 94
--- NOTE | 2017-10-03 08:00 | NUR ---
OBS Note: Patient resting in bed comfortably. AOx4. Vital signs stable. Ambulating in room independently without difficulty. Voiding adequately. Straining urine. Currently only pain is a headache. Call peterson within reach. Will continue to monitor.
[2017-10-03] MEDS: ACETAMINOPHEN 325 MG TAB PO PRN ×3 (09:17→21:51)
[2017-10-03] MEDS: AMITRIPTYLINE HCL 10 MG TAB PO SCH (09:17)
[2017-10-03] MEDS: ASPIRIN 81 MG ECTAB PO SCH (09:18)
[2017-10-03] MEDS: TAMSULOSIN HCL 0.4 MG CAP PO SCH (09:19)
[2017-10-03 09:25] LABS: BASO % 0.2 %; BASO ABS # 0.01 K/uL (0-0.2); EOS % 1.2 %; EOS ABS # 0.08 K/uL (0-0.5); HEMATOCRIT 38.9 % (37-47); HEMOGLOBIN 13.4 g/dL (12.0-16.0); IG# 0.01 K/uL (0.00-0.02); LYMPH % 19.8 %; LYMPH ABS # 1.31 K/uL (1.2-3.4); MEAN CELL VOLUME 92.2 fL (80-100); MEAN CORPUSCULAR HEMOGLOBIN 31.8 pg (25-34); MEAN CORPUSCULAR HGB CONC 34.4 g/dl (32-36); MEAN PLATELET VOLUME 10.2 fL (7.4-10.4); MONO % 9.4 %; MONO ABS # 0.62 K/uL (0.11-0.59); NEUT % 69.2 %; NEUT ABS # 4.58 K/uL (1.4-6.5); PLATELET COUNT 181 K/uL (130-400); RED CELL DISTRIBUTION WIDTH SD 43.6 fL (36.4-46.3); WHITE BLOOD COUNT 6.61 K/uL (4.8-10.8)
--- NOTE | 2017-10-03 09:26 | Urology Consultation ---
History General Date of Service: Oct 03, 2017. Chief Complaint: left low back pain Primary Care Physician: Ang Morris M.D. Pt seen a urologist before?: Yes History of Present Illness 62 yo female presents to [facility] with c/o left flank and low back pain that started yesterday. Pain was accompanied by n/v. Pt denies f/c, dysuria, or hematuria. Pain has improved this morning. CT showing a 4mm left UVJ stone. The pt has no previous hx of stones. She has seen Dr. Alberto before for a "bladder test," and is scheduled to see Dr. Longoria in November for evaluation of microhematuria and "inflammed urethra." She is afebrile. White count is normal. Cr is 1.22. Imaging Imaging: CT Laboratory Last 24 Hours Test 10/02/17 13:00 10/02/17 13:55 10/03/17 09:04 White Blood Count 8.16 K/uL Red Blood Count 4.44 M/uL Hemoglobin 14.0 g/dL Hematocrit 40.2 % Mean Corpuscular Volume 90.5 fL Mean Corpuscular Hemoglobin 31.5 pg Mean Corpuscular Hemoglobin Concent 34.8 g/dl Platelet Count 206 K/uL Mean Platelet Volume 10.2 fL Neutrophils (%) (Auto) 75.6 % Lymphocytes (%) (Auto) 15.1 % Monocytes (%) (Auto) 7.5 % Eosinophils (%) (Auto) 1.5 % Basophils (%) (Auto) 0.1 % Neutrophils # (Auto) 6.17 K/uL Lymphocytes # (Auto) 1.23 K/uL Monocytes # (Auto) 0.61 K/uL Eosinophils # (Auto) 0.12 K/uL Basophils # (Auto) 0.01 K/uL RDW Standard Deviation 42.8 fL RDW Coefficient of Variation 13.0 % Immature Granulocyte % (Auto) 0.2 % Immature Granulocyte # (Auto) 0.02 K/uL Sodium Level 139 mmol/L Potassium Level 3.7 mmol/L Chloride Level 108 mmol/L Carbon Dioxide Level 22 mmol/L Anion Gap 9.0 mmol/L Blood Urea Nitrogen 21 mg/dl Creatinine 1.22 mg/dl Est Creatinine Clear Calc Drug Dose 55.6 ml/min Estimated GFR () 55.8 Estimated GFR (Non- 48.1 BUN/Creatinine Ratio 17.3 Random Glucose 128 mg/dl Calcium Level 9.1 mg/dl Total Bilirubin 0.6 mg/dl Direct Bilirubin 0.2 mg/dl Aspartate Amino Transf (AST/SGOT) 18 U/L Alanine Aminotransferase (ALT/SGPT) 32 U/L Alkaline Phosphatase 142 U/L Total Protein 7.3 gm/dl Albumin 4.3 gm/dl Lipase 125 U/L Urine Color ORANGE Urine Appearance TURBID Urine pH 5.0 Urine Specific [place] 1.039 Urine Protein 2+ Urine Glucose (UA) NEG Urine Ketones TRACE Urine Occult Blood 3+ Urine Nitrite NEG Urine Bilirubin NEG Urine Urobilinogen NEG Urine Leukocyte Esterase SMALL Urine WBC (Auto) >30 /hpf Urine RBC (Auto) >30 /hpf Urine Hyaline Casts (Auto) 1-5 /lpf Urine Epithelial Cells (Auto) >30 /lpf Urine Bacteria (Auto) NEG Urine Crystals CALCIUM OXALATE Urine Pathogenic Casts /lpf Problem List Medical Problems: (1) Acute costochondritis Status: Acute (2) Atypical chest pain Status: Acute (3) Bronchitis Status: Acute (4) Fall down stairs Status: Acute (5) Fracture of rib of left side Status: Acute (6) Hydronephrosis Status: Acute Past History asthma, depression, hypertension, other (endometriosis) Past Surgical History: appendectomy, cholecystectomy, exploratory laparoscopy, hysterectomy Family History Cancer Heart disease Hypertension Kidney disease Kidney stones MOTHER Social History Hx Tobacco Use In Past Year?: No Smoking: non-smoker Drug use: none Marital status: Housing status: lives with family Occupation status: employed Immunizations History of Influenza Vaccine: N/A History of Tetanus Vaccine?: UTD Tetanus Immunization Date: March 05, 2004 History of Pneumococcal: No History of Hepatitis B Vaccine: Yes Hepatitis Immunization Date: March 05, 2006 History of MDRO No Allergies Coded Allergies: Sulfa Antibiotics (Verified Allergy, Unknown, unknown, 10/02/17) Sulfamethoxazole (Verified Allergy, Unknown, 10/02/17) Medications Home Medications: Home Meds and Scripts Medications Dose Route/Sig Max Daily Dose Days Date Category Seroquel (Quetiapine Fumarate) 300 Mg Tab 300 Mg PO HS 09/16/17 Reported Clonazepam 1 Mg Tab 2 Mg PO HS 09/16/17 Reported Elavil (Amitriptyline Hcl) 10 Mg Tab 10 Mg PO QAM 11/11/13 Reported Aspirin 81 (Aspirin) 81 Mg Tab 81 Mg PO DAILY 11/11/13 Reported Fiber Therapy (Methylcellulose (Laxative)) 500 Mg Tab 1,000 Mg PO DAILY 11/11/13 Reported Inpatient Medications: Current Inpatient Medications Medications (Trade) Dose Ordered Sig/Maria Dolores Route Start Time Stop Time Status Last Admin Dose Admin Ioversol (Optiray 320) 111 ml UD PRN IV 10/02/17 14:45 10/06/17 14:44 Amitriptyline HCl (Elavil Tab) 10 mg QAM PO 10/03/17 09:00 11/02/17 08:59 Aspirin (Ecotrin Tab) 81 mg DAILY PO 10/03/17 09:00 11/02/17 08:59 Clonazepam (Klonopin Tab) 2 mg HS PO 10/02/17 21:00 11/01/17 20:59 10/02/17 20:43 2 MG Quetiapine Fumarate (seroQUEL TAB) 300 mg HS PO 10/02/17 21:00 11/01/17 20:59 10/02/17 20:40 300 MG Tamsulosin HCl (Flomax Cap) 0.4 mg QAM PO 10/03/17 09:00 11/02/17 08:59 Diphenhydramine HCl (Benadryl Inj) 12.5 mg Q6 PRN IV 10/02/17 17:30 11/01/17 17:29 Hydromorphone HCl (Dilaudid Inj) 1 mg Q6 PRN IV 10/02/17 17:30 10/16/17 17:29 10/03/17 02:54 1 MG Ondansetron HCl (Zofran Inj) 4 mg Q6H PRN IV 10/02/17 17:45 11/01/17 17:44 10/03/17 02:51 4 MG Miscellaneous (Iv Fluids Completed) 1 ea PRN PRN N/A 10/02/17 22:00 10/02/18 21:59 Acetaminophen (Tylenol Tab) 650 mg Q6 PRN PO 10/03/17 08:45 11/02/17 08:44 Review of Systems Review of Systems Constitutional: No fever, No chills Eyes: No double vision Neurological: No dizzy Endocrine: No excessive thirst Gastrointestinal: No abdominal pain, No nausea, No vomiting Cardiovascular: No chest pain Respiratory: No shortness of breath Skin: No rash Musculoskeletal: + back pain (left low back ) Female : No painful urination, No blood in urine Physical Exam Vital Signs: Vital Signs Past 12 Hours Date Time Temp Pulse Resp B/P (MAP) Pulse Ox O2 Delivery O2 Flow Rate FiO2 10/03/17 07:30 Room Air 10/03/17 06:53 37.0 84 16 124/83 (97) 94 Room Air 10/02/17 23:50 Room Air 10/02/17 23:25 36.7 80 18 131/87 (102) 95 Room Air Physical Exam: General Appearance: no apparent distress Eyes: bilateral eyes normal inspection ENT: hearing grossly normal Neck: no JVD Respiratory/Chest: no respiratory distress, no accessory muscle use Cardiovascular: no JVD Extremities: normal inspection Neurologic/Psychiatric: alert, normal mood/affect, oriented x 3 Skin: normal color Assessment & Plan Assessment & Plan A/P: 4mm left UVJ stone AFVSS. CT reviewed with Dr. Noriega this morning. Stone has almost passed into the bladder. Will observe today, and repeat a KUB in the AM. Supportive management with IVF, Flomax, and pain control. Fluids encouraged. Strain all urine. UC&S pending. Repeat labs in AM. Diet today. NPO after midnight. Thanks for the consult. Will continue to follow along with primary service. Pt w/o pain tonite . No stone seen . Ordered kub for am and she remains npo and we discussed option of intervention vs trial of passage . Darren Alberto
[2017-10-03] MEDS: SODIUM CHLORIDE 0.45% 1000ML 1,000 ML IV SCH ×2 (09:48→18:09)
[2017-10-03 09:52] LABS: ALBUMIN 3.8 gm/dl (3.4-5.0); CALCIUM 8.8 mg/dl (8.5-10.1); CREATININE 1.45 mg/dl (0.60-1.20); POTASSIUM 3.9 mmol/L (3.5-5.1)
[2017-10-03 09:55] LABS: TOTAL PROTEIN 6.8 gm/dl (6.4-8.2)
--- NOTE | 2017-10-03 10:53 | NUR ---
Pt identified as a case find as a 30 day readmission. Spoke with Pt. She lives at home with her . She is independent with ADL's. She plans to return home at discharge. Case management will follow.
--- NOTE | 2017-10-03 12:00 | NUR ---
OBS Note: Patient resting in bed. AOx4. Vital signs stable. IV fluids infusing per MDs orders. Ambulating to restroom independently without difficulty. Voiding adequately. Straining urine. Currently denies pain. Call peterson within reach. Will continue to monitor.
[2017-10-03 14:55] VITALS: BP 119/76; PULSE 79; TEMP 36.7; O2SAT 96
--- NOTE | 2017-10-03 16:00 | NUR ---
OBS note: Pt is alert and oriented x4. VS are stable. IV fluids infusing per MD order. OOB independently to bathroom. Tolerating regular diet. No complaints of pain, but is complaning of a headache - medicated with tylenol. Straining all urine, no stones noted. Pt will be NPO after midnight for possible stent placement tomorrow. Discharge plans are uncertain at this time.
--- NOTE | 2017-10-03 17:49 | Progress Note ---
Internal Med Progress Note Date of Service: Oct 03, 2017. Provider Documentation: SUBJECTIVE: resting comfortably afebrile pain improved no nausea no sob OBJECTIVE: Vital Signs-as noted below Exam: General-alert and oriented. not in distress ENT-Normal hearing Neck-no neck masses Lungs-Cta b/l no wheezing or crackles Heart-S1 and S2 heard regular No murmurs Abdomen-Soft Bowel sounds present Non tender No distension Extremities-No edema No erythema Neuro-alert and awake moves extremities Lab data as noted below. ASSESSMENT & PLAN: Left-sided nephrolithiasis and 2. 4 mm calculus at the level the left ureterovesical junction with secondary obstructive changes stone moved into bladder plan for extraction in am if doesn't pass Tamsulosin appreciate urology inputs iv fluids and iv pain meds prn currently asymptomatic Hypoxia in the Emergency room likely from sedation from morphine currently stable History of mood disorder stable on sertraline and clonazepam History of Migraine headaches on amitriptyline DVT PROPHYLAXIS scds DISPOSITION possible d/c in am Vital Signs: Date Time Temp Pulse Resp B/P (MAP) Pulse Ox O2 Delivery O2 Flow Rate FiO2 10/03/17 14:55 36.7 79 16 119/76 (90) 96 Room Air 10/03/17 07:30 Room Air 10/03/17 06:53 37.0 84 16 124/83 (97) 94 Room Air 10/02/17 23:50 Room Air 10/02/17 23:25 36.7 80 18 131/87 (102) 95 Room Air Lab Results: Results Past 24 Hours Test 10/03/17 09:04 Range/Units White Blood Count 6.61 4.8-10.8 K/uL Red Blood Count 4.22 4.2-5.4 M/uL Hemoglobin 13.4 12.0-16.0 g/dL Hematocrit 38.9 37-47 % Mean Corpuscular Volume 92.2 80-100 fL Mean Corpuscular Hemoglobin 31.8 25-34 pg Mean Corpuscular Hemoglobin Concent 34.4 32-36 g/dl Platelet Count 181 130-400 K/uL Mean Platelet Volume 10.2 7.4-10.4 fL Neutrophils (%) (Auto) 69.2 % Lymphocytes (%) (Auto) 19.8 % Monocytes (%) (Auto) 9.4 % Eosinophils (%) (Auto) 1.2 % Basophils (%) (Auto) 0.2 % Neutrophils # (Auto) 4.58 1.4-6.5 K/uL Lymphocytes # (Auto) 1.31 1.2-3.4 K/uL Monocytes # (Auto) 0.62 0.11-0.59 K/uL Eosinophils # (Auto) 0.08 0-0.5 K/uL Basophils # (Auto) 0.01 0-0.2 K/uL RDW Standard Deviation 43.6 36.4-46.3 fL RDW Coefficient of Variation 13.0 11.5-14.5 % Immature Granulocyte % (Auto) 0.2 % Immature Granulocyte # (Auto) 0.01 0.00-0.02 K/uL Sodium Level 137 136-145 mmol/L Potassium Level 3.9 3.5-5.1 mmol/L Chloride Level 103 98-107 mmol/L Carbon Dioxide Level 28 21-32 mmol/L Anion Gap 6.0 3-11 mmol/L Blood Urea Nitrogen 18 7-18 mg/dl Creatinine 1.45 0.60-1.20 mg/dl Est Creatinine Clear Calc Drug Dose 46.8 ml/min Estimated GFR () 45.3 Estimated GFR (Non- 39.0 BUN/Creatinine Ratio 12.3 10-20 Random Glucose 130 70-99 mg/dl Calcium Level 8.8 8.5-10.1 mg/dl Total Bilirubin 0.8 0.2-1 mg/dl Aspartate Amino Transf (AST/SGOT) 93 15-37 U/L Alanine Aminotransferase (ALT/SGPT) 150 12-78 U/L Alkaline Phosphatase 144 45-117 U/L Total Protein 6.8 6.4-8.2 gm/dl Albumin 3.8 3.4-5.0 gm/dl Globulin 3.0 2.5-4.0 gm/dl Albumin/Globulin Ratio 1.3 0.9-2
[2017-10-03] MEDS ORDERED: HYDROmorphone INJ 0.5 MG/0.5 ML SYR IV PRN (18:00)
--- NOTE | 2017-10-03 20:00 | NUR ---
OBS note: Pt is alert and oriented x4. VS are stable. IV fluids infusing per MD order. OOB independently to bathroom. Tolerating regular diet. No complaints of pain, but is complaining of a headache - medicated with tylenol, will reassess pain. Straining all urine, no stones noted. Pt will be NPO after midnight for possible stent placement tomorrow. Discharge plans are uncertain at this time.
[2017-10-03] MEDS: QUETIAPINE FUMARATE 300 MG TAB PO SCH (20:34)
[2017-10-03] MEDS: CLONAZEPAM 1 MG TAB PO SCH (20:34)
[2017-10-03 23:35] VITALS: BP 107/73; PULSE 89; TEMP 36.8; O2SAT 91
--- NOTE | 2017-10-04 | NUR ---
OBS: Pt A&O x4. VSS. OOB independently to BR. Straining urine. IVF infusing per MD order. NPO x meds after midnight. Medicated with tylenol per evening shift RN for headache. Pt to have KUB in AM. PreOp paperwork completed and placed in chart, interventions started incase pt goes to OR today. Pt denies needs at this time. Will continue to monitor.
[2017-10-04] MEDS: SODIUM CHLORIDE 0.45% 1000ML 1,000 ML IV SCH ×2 (01:34→08:48)
--- NOTE | 2017-10-04 04:00 | NUR ---
OBS: Pt continues to request PRN Dilaudid every hour, consistently rating pain a 7/10. Administered PRN IV Hydralazine for BP 167/93, will recheck BP in 1 hour. Pt has been awake all night coloring. No other needs identified at this time. Will continue to monitor.
[2017-10-04 07:17] VITALS: BP 102/67; PULSE 89; TEMP 36.6; O2SAT 95
--- NOTE | 2017-10-04 08:00 | NUR ---
OBS NOTE: Alert and oriented x4. VSS. Tolerating IV fluids. Ambulates independently. Reports pain to be at a tolerable level. Voiding in the bathroom. All urine being strained. D/C plans unsure at this time. Call peterson within reach. No questions or concerns.
[2017-10-04 09:08] LABS: BASO % 0.2 %; BASO ABS # 0.01 K/uL (0-0.2); EOS % 3.5 %; EOS ABS # 0.17 K/uL (0-0.5); HEMATOCRIT 35.9 % (37-47); HEMOGLOBIN 12.3 g/dL (12.0-16.0); IG# 0.01 K/uL (0.00-0.02); LYMPH % 25.2 %; LYMPH ABS # 1.22 K/uL (1.2-3.4); MEAN CELL VOLUME 91.8 fL (80-100); MEAN CORPUSCULAR HEMOGLOBIN 31.5 pg (25-34); MEAN CORPUSCULAR HGB CONC 34.3 g/dl (32-36); MEAN PLATELET VOLUME 9.9 fL (7.4-10.4); MONO % 11.2 %; MONO ABS # 0.54 K/uL (0.11-0.59); NEUT % 59.7 %; NEUT ABS # 2.89 K/uL (1.4-6.5); PLATELET COUNT 175 K/uL (130-400); RED CELL DISTRIBUTION WIDTH SD 43.3 fL (36.4-46.3); WHITE BLOOD COUNT 4.84 K/uL (4.8-10.8)
[2017-10-04] MEDS: ASPIRIN 81 MG ECTAB PO SCH (09:09)
[2017-10-04] MEDS: TAMSULOSIN HCL 0.4 MG CAP PO SCH (09:09)
[2017-10-04] MEDS: ACETAMINOPHEN 325 MG TAB PO PRN (09:09)
[2017-10-04] MEDS: AMITRIPTYLINE HCL 10 MG TAB PO SCH (09:09)
--- NOTE | 2017-10-04 09:15 | DIAGNOSTIC IMAGING REPORT ---
KUB HISTORY: Follow-up study in a patient with a distal left ureteral calculus ureteral stone COMPARISON: None. FINDINGS: The bowel gas pattern is non-obstructive. Moderate stool volume of the cecum and ascending colon. There is no organomegaly. 5 mm linear calcification of the left hemipelvis suggests persistent calculus of the distal left ureter seen within the region of the left ureterovesicular junction on comparison study. Multiple phleboliths of the pelvis redemonstrated. Previously described left nephrolithiasis obscured by bowel gas. Prior cholecystectomy. No pneumoperitoneum or pneumatosis. No fracture. Multilevel degenerative changes of the spine and pelvis. IMPRESSION: 1. 5 mm linear calcification of the left hemipelvis suggests persistent calculus of the distal left ureter. 2. Previously noted left nephrolithiasis obscured by bowel gas. Electronically signed by: Regino Catherine M.D. 10/04/2017 9:14 AM Dictated Date/Time: 10/04/2017 9:11 AM
[2017-10-04 09:44] LABS: CALCIUM 9.2 mg/dl (8.5-10.1); CREATININE 0.8 mg/dl (0.60-1.20); POTASSIUM 3.4 mmol/L (3.5-5.1)
[2017-10-04] MEDS ORDERED: POTASSIUM CHLORIDE 20 MEQ TABCR PO ONE (11:15)
--- NOTE | 2017-10-04 12:00 | NUR ---
OBS NOTE: Tolerating IV fluids. Alert and oriented x4. Patient no longer NPO and will receive regular diet for lunch. Straining all urine. Tolerating IV fluids. Denies pain. Ambulates independently. Call peterson within reach. No questions or concerns. Plan is for patient to go home on discharge.
--- NOTE | 2017-10-04 12:34 | Progress Note ---
Subjective Date of Service: Oct 04, 2017. Subjective Pt evaluation today including: conversation w/ patient, physical exam, chart review, lab review, review of studies Pain: Resolved PO Intake: NPO Voiding: no voiding problems Pain resolved. No nausea. Ambulating. Never had stone before. Was UVJ stone very distal. No sudden hematuria or clots. No fevers. Problem List Medical Problems: (1) Acute costochondritis Status: Acute (2) Atypical chest pain Status: Acute (3) Bronchitis Status: Acute (4) Fall down stairs Status: Acute (5) Fracture of rib of left side Status: Acute (6) Hydronephrosis Status: Acute Review of Systems All Other Systems: Reviewed and Negative Objective Vital Signs Date Time Temp Pulse Resp B/P (MAP) Pulse Ox O2 Delivery O2 Flow Rate FiO2 10/04/17 07:45 Room Air 10/04/17 07:17 36.6 89 19 102/67 (79) 95 Room Air 10/03/17 23:45 Room Air 10/03/17 23:35 36.8 89 17 107/73 (84) 91 Room Air 10/03/17 15:45 Room Air 10/03/17 14:55 36.7 79 16 119/76 (90) 96 Room Air Physical Exam General Appearance: WD/WN, no apparent distress Eyes: normal inspection ENT: normal ENT inspection, hearing grossly normal Neck: supple Respiratory/Chest: no respiratory distress, no accessory muscle use Cardiovascular: regular rate, rhythm Abdomen: non tender, soft Extremities: normal range of motion, non-tender, normal inspection Neurologic/Psychiatric: package crimper II-XII nml as tested, no motor/sensory deficits, alert, normal mood/affect, oriented x 3 Skin: normal color, warm/dry Lymphatic: no adenopathy Laboratory Results Last 24 Hours Test 10/04/17 08:23 White Blood Count 4.84 K/uL Red Blood Count 3.91 M/uL Hemoglobin 12.3 g/dL Hematocrit 35.9 % Mean Corpuscular Volume 91.8 fL Mean Corpuscular Hemoglobin 31.5 pg Mean Corpuscular Hemoglobin Concent 34.3 g/dl Platelet Count 175 K/uL Mean Platelet Volume 9.9 fL Neutrophils (%) (Auto) 59.7 % Lymphocytes (%) (Auto) 25.2 % Monocytes (%) (Auto) 11.2 % Eosinophils (%) (Auto) 3.5 % Basophils (%) (Auto) 0.2 % Neutrophils # (Auto) 2.89 K/uL Lymphocytes # (Auto) 1.22 K/uL Monocytes # (Auto) 0.54 K/uL Eosinophils # (Auto) 0.17 K/uL Basophils # (Auto) 0.01 K/uL RDW Standard Deviation 43.3 fL RDW Coefficient of Variation 13.0 % Immature Granulocyte % (Auto) 0.2 % Immature Granulocyte # (Auto) 0.01 K/uL Sodium Level 141 mmol/L Potassium Level 3.4 mmol/L Chloride Level 108 mmol/L Carbon Dioxide Level 27 mmol/L Anion Gap 6.0 mmol/L Blood Urea Nitrogen 14 mg/dl Creatinine 0.80 mg/dl Est Creatinine Clear Calc Drug Dose 84.8 ml/min Estimated GFR () 92.9 Estimated GFR (Non- 80.1 BUN/Creatinine Ratio 17.3 Random Glucose 88 mg/dl Calcium Level 9.2 mg/dl Assessment and Plan 1. UVJ Stone 2. Dysuria 3. Pain/Nausea resolved. Likely passed stone. KUB shows calcification assumed to be stone at distal ureter/bladder. Pain resolved and tolerable without any major issues. Possibly stone still in place and this was discussed with patient. Due to significnat improvement of symptoms, can plan to continue conservative measures with hydration and monitoring of output. May have blood in urine. Continue to strain. Okay to start diet and encourage activity. Will need outpatient workup and LIZABETH in 2-3 weeks to reassess and confirm passage of stone. Will plan to follow and assess at that time. Also issues with UTI's and will need workup due to hematuria. Recommend pain control and hydration. Call if any fevers, Nausea, or severe pain. Flomax and pain medications and conservative measures with support to insure complete passage. No surgical intervention at this time. Follow up as outpatient. Okay to go home as long as symptoms are controlled.
[2017-10-04] MEDS ORDERED: FLM4 PO (13:40)
--- NOTE | 2017-10-04 13:42 | Discharge Instructions ---
Discharge Instructions Date of Service Oct 04, 2017. Admission Reason for Admission: Renal Calculi Discharge Discharge Diagnosis / Problem: RENAL CALCULI Discharge Goals Goal(s): Decrease discomfort, Improve function Activity Recommendations Activity Limitations: resume your previous activity . Instructions / Follow-Up Instructions / Follow-Up FOLLOWUP WITH FAMILY DOCTOR Ang [place] ON Sep AT 10:45AM FOLLOWUP WITH UROLOGY IN 2-3 WEEKS TO STRAIN URINE Current Hospital Diet Patient's current hospital diet: Regular Diet Discharge Diet Recommended Diet: Regular Diet Pending Studies Studies pending at discharge: no Medical Emergencies . Who to Call and When: Medical Emergencies: If at any time you feel your situation is an emergency, please call 911 immediately. . Non-Emergent Contact Non-Emergency issues call your: Primary Care Provider . . "Provider Documentation" section prepared by Parth Fisher. . VTE Core Measure Inpt VTE Proph given/why not?: SCD's
[2017-10-04 13:46] VITALS: BP 102/67; PULSE 89; TEMP 36.6; O2SAT 95
--- NOTE | 2017-10-04 14:20 | NUR ---
A NOTE: Discharge instructions and script given to and discussed with patient. No questions or concerns. IV was removed with tip intact.
--- NOTE | 2017-10-04 17:12 | Progress Note ---
Internal Med Progress Note Date of Service: Oct 04, 2017. Provider Documentation: SUBJECTIVE: resting comfortably denies any pain no sob no nausea wants to go home OBJECTIVE: Vital Signs-as noted below Exam: General-alert and oriented. not in distress ENT-Normal hearing Neck-no neck masses Lungs-Cta b/l no wheezing or crackles Heart-S1 and S2 heard regular No murmurs Abdomen-Soft Bowel sounds present Non tender No distension Extremities-No edema No erythema Neuro-alert and awake moves extremities Lab data as noted below. ASSESSMENT & PLAN: Left-sided nephrolithiasis and 4 mm calculus at the level the left ureterovesical junction with secondary obstructive changes plan for extraction in am if doesn't pass Tamsulosin appreciate urology inputs iv fluids and iv pain meds prn currently asymptomatic urology recommends to ry to pass stone as out patient and f/u with them in 2-3 weeks patient ok with the plan and wants to go home Hypoxia in the Emergency room likely from sedation from morphine currently stable History of mood disorder stable on sertraline and clonazepam History of Migraine headaches on amitriptyline discharged home Vital Signs: Date Time Temp Pulse Resp B/P (MAP) Pulse Ox O2 Delivery O2 Flow Rate FiO2 10/04/17 13:46 36.6 89 19 95 Room Air 10/04/17 07:45 Room Air 10/04/17 07:17 36.6 89 19 102/67 (79) 95 Room Air 10/03/17 23:45 Room Air 10/03/17 23:35 36.8 89 17 107/73 (84) 91 Room Air Lab Results: Results Past 24 Hours Test 10/04/17 08:23 Range/Units White Blood Count 4.84 4.8-10.8 K/uL Red Blood Count 3.91 4.2-5.4 M/uL Hemoglobin 12.3 12.0-16.0 g/dL Hematocrit 35.9 37-47 % Mean Corpuscular Volume 91.8 80-100 fL Mean Corpuscular Hemoglobin 31.5 25-34 pg Mean Corpuscular Hemoglobin Concent 34.3 32-36 g/dl Platelet Count 175 130-400 K/uL Mean Platelet Volume 9.9 7.4-10.4 fL Neutrophils (%) (Auto) 59.7 % Lymphocytes (%) (Auto) 25.2 % Monocytes (%) (Auto) 11.2 % Eosinophils (%) (Auto) 3.5 % Basophils (%) (Auto) 0.2 % Neutrophils # (Auto) 2.89 1.4-6.5 K/uL Lymphocytes # (Auto) 1.22 1.2-3.4 K/uL Monocytes # (Auto) 0.54 0.11-0.59 K/uL Eosinophils # (Auto) 0.17 0-0.5 K/uL Basophils # (Auto) 0.01 0-0.2 K/uL RDW Standard Deviation 43.3 36.4-46.3 fL RDW Coefficient of Variation 13.0 11.5-14.5 % Immature Granulocyte % (Auto) 0.2 % Immature Granulocyte # (Auto) 0.01 0.00-0.02 K/uL Sodium Level 141 136-145 mmol/L Potassium Level 3.4 3.5-5.1 mmol/L Chloride Level 108 98-107 mmol/L Carbon Dioxide Level 27 21-32 mmol/L Anion Gap 6.0 3-11 mmol/L Blood Urea Nitrogen 14 7-18 mg/dl Creatinine 0.80 0.60-1.20 mg/dl Est Creatinine Clear Calc Drug Dose 84.8 ml/min Estimated GFR () 92.9 Estimated GFR (Non- 80.1 BUN/Creatinine Ratio 17.3 10-20 Random Glucose 88 70-99 mg/dl Calcium Level 9.2 8.5-10.1 mg/dl
--- NOTE | 2017-10-04 17:14 | Discharge Summary ---
Discharge Summary Date of Service Oct 04, 2017. Discharge Summary Admission Date: Oct 02, 2017 at 16:48 Discharge Date: Oct 04, 2017 Discharge Disposition: Home Principal Diagnosis: RENAL COLIC Secondary Diagnoses/Problems: 1) Appendectomy Status: Resolved (2) Asthma, Unspecified Status: Chronic (3) Cholecystectomy Status: Resolved (4) Depression Status: Chronic (5) Endometriosis Status: Chronic (6) Hypertension Nos Status: Chronic (7) Hysterectomy Status: Resolved (8) Laparoscopy Status: Resolved Procedures: CT ABD/PELVIS: 1. Left-sided nephrolithiasis 2. 4 mm calculus at the level the left ureterovesical junction with secondary obstructive changes 3. No evidence of bowel obstruction. No evidence of free air. 4. Unusual infiltration the perinephric fat surrounding the left renal artery and vein, at the hilar level.. This is not the typical pattern of perinephric infiltration one sees with renal obstruction. A coexistent vascular abnormality of the renal artery or vein cannot be excluded. If clinically indicated, CT angiography including a venous phase might be considered in follow-up. CT ANGIOGRAPHY AND VENOGRAPHY OF THE ABDOMEN WITH CONTRAST: 1. No vascular abnormality of the left kidney. Specifically, no evidence for renal vein thrombosis. No left renal artery abnormality. Left perinephric infiltration is due to the obstruction as shown on CT from earlier today. Persistent moderate left hydronephrosis. Delayed nephrogram due to the obstruction. 2. 1.3 cm splenic artery aneurysm. No evidence for rupture. KUB: 1. 5 mm linear calcification of the left hemipelvis suggests persistent calculus of the distal left ureter. 2. Previously noted left nephrolithiasis obscured by bowel gas. Consultations: UROLOGY Medication Reconciliation New Medications: Tamsulosin HCl (Tamsulosin HCl) 0.4 Mg Cap 0.4 MG PO QAM, #30 CAP 1 Refill Continued Medications: Amitriptyline Hcl (Elavil) 10 Mg Tab 10 MG PO QAM, TAB Aspirin (Aspirin 81) 81 Mg Tab 81 MG PO DAILY Clonazepam (Clonazepam) 1 Mg Tab 2 MG PO HS Methylcellulose (Laxative) (Fiber Therapy) 500 Mg Tab 1000 MG PO DAILY Quetiapine Fumarate (Seroquel) 300 Mg Tab 300 MG PO HS, TAB Admission Information HPI (per Admitting provider): The patient is a 62 year old female with PMH of colonoscopy on 10/01/17 yesterday for polypectomy at [facility] and when sent home she went to sleep and awoke the next morning at home on 10/02/17 with left sided back pain. Patient was presented to the emergency room and found to have on imaging of CT abdomen/pelvis of Left-sided nephrolithiasis and 2. 4 mm calculus at the level the left ureterovesical junction with secondary obstructive changes. Additional CTA of left kidney vasculature was performed but no additional abnormal findings. As per Emergency room evaluation, patient requires further hospital care for pain control and hypoxia. She is seen and examined by the hospitalist admitting physician while breathing on nasal cannula without acute distress breathing in full sentences. She denies acute pain at the moment but she has recently received pain mediations. On exam there is no acute costovertebral angle tenderness but she reports pain localized more the the left hip which has some tenderness on palpation. When patient was on the medical [place], patient had nasal cannula removed and saturating above 97% on room air Past surgical history of cholecystectomy and appendectomy Patient reports sulfa allergies that leads to rash Physical Exam (per Admitting): General Appearance: no apparent distress Head: normocephalic, atraumatic Eyes: normal inspection, EOMI ENT: normal ENT inspection, hearing grossly normal, pharynx normal Neck: supple, no adenopathy, no JVD, trachea midline Respiratory/Chest: chest non-tender, lungs clear, normal breath sounds, no respiratory distress, no accessory muscle use, + pertinent finding (on nasal cannula) Cardiovascular: regular rate, rhythm, no edema, no JVD Abdomen/GI: normal bowel sounds, non tender, soft, no organomegaly Back: normal inspection, no CVA tenderness, no muscle spasm, + pertinent finding (left hip tenderness) Extremities/Musculoskelatal: normal inspection, no calf tenderness, no pedal edema, normal range of motion Neurologic/Psych: no motor/sensory deficits, alert, oriented x 3 Skin: normal color, warm/dry, no rash Hospital Course Left-sided nephrolithiasis and 4 mm calculus at the level the left ureterovesical junction with secondary obstructive changes plan for extraction in am if doesn't pass Tamsulosin appreciate urology inputs iv fluids and iv pain meds prn currently asymptomatic urology recommends to ry to pass [facility] as out patient and f/u with them in 2-3 weeks patient ok with the plan and wants to go home Hypoxia in the Emergency room likely from sedation from morphine currently stable History of mood disorder stable on sertraline and clonazepam History of Migraine headaches on amitriptyline discharged home Total time spent on discharge = 35MINUTES This includes examination of the patient, discharge planning, medication reconciliation, and communication with other providers. Discharge Instructions Discharge Instructions Date of Service Oct 04, 2017. Admission Reason for Admission: Renal Calculi Discharge Discharge Diagnosis / Problem: RENAL CALCULI Discharge Goals Goal(s): Decrease discomfort, Improve function Activity Recommendations Activity Limitations: resume your previous activity . Instructions / Follow-Up Instructions / Follow-Up FOLLOWUP WITH FAMILY DOCTOR Ang [place] ON Sep AT 10:45AM FOLLOWUP WITH UROLOGY IN 2-3 WEEKS TO STRAIN URINE Current Hospital Diet Patient's current hospital diet: Regular Diet Discharge Diet Recommended Diet: Regular Diet Pending Studies Studies pending at discharge: no Medical Emergencies . Who to Call and When: Medical Emergencies: If at any time you feel your situation is an emergency, please call 911 immediately. . Non-Emergent Contact Non-Emergency issues call your: Primary Care Provider . . "Provider Documentation" section prepared by Parth Fisher. . VTE Core Measure Inpt VTE Proph given/why not?: SCD's
== END 2017-10-04 14:20 | disposition home or self-care (01) ==
LOC: C.EDB 12:27 → C.MSW 16:48 → ENRESERV 17:00
PROVIDERS: ADMIT Hospitalist; ATTEND Internal Medicine
DX: N13.2 Hydronephrosis with renal and ureteral calculous obstruction (principal); R09.02 Hypoxemia; I10 Essential (primary) hypertension; J45.909 Unspecified asthma, uncomplicated; F32.9 Major depressive disorder, single episode, unspecified; Z87.442 Personal history of urinary calculi; Z90.49 Acquired absence of other specified parts of digestive tract; Z90.710 Acquired absence of both cervix and uterus; Z79.82 Long term (current) use of aspirin; Z79.899 Other long term (current) drug therapy

== ENCOUNTER → 2017-10-18 | Outpatient (CLI) | payer BC ==
[~2017-10-18] MED LIST changes: +FLM4 PO; -MIDRIN PO
== END | disposition home or self-care (01) ==
LOC: C.LABSPEC 10:42
PROVIDERS: ATTEND Urology
DX: R31.0 Gross hematuria (principal); N20.1 Calculus of ureter

== ENCOUNTER → 2017-10-29 | Outpatient (CLI) | payer OTHER ==
[~2017-10-29] MED LIST changes: +OPTIRAY 320 IV PRN
--- NOTE | 2017-10-29 07:35 | DIAGNOSTIC IMAGING REPORT ---
ABD/PELVIS COMBO CT DOSE: 1817.30 mGycm HISTORY: Hematuria R31.0 Gross [id number] Ureteric stoneSpoke with Carolynn NPR re TECHNIQUE: Multiaxial CT images of the abdomen and pelvis were performed pre and post intravenous contrast enhancement. A dose lowering technique was utilized adhering to the principles of ALARA. COMPARISON STUDY: 10/02/2017 FINDINGS: Lung bases are considered clear. Liver spleen and pancreas enhance uniformly. Kidneys currently are negative for hydronephrosis. Enhancement characteristics are uniform. Ureters normal in course and caliber. The left ureterovesical junction calculus procedure described has passed. There are no significant filling defects within the bladder. Bowel pattern overall is nonobstructive. There are findings of a prior cholecystectomy. IMPRESSION: 1. No acute process the abdomen or pelvis. 2. No evidence for an obstructing urinary tract calculus. 3. The left ureterovesical junction calculus on the prior study has passed The above report was generated using voice recognition software. It may contain grammatical, syntax or spelling errors. Electronically signed by: Juan Echols M.D. 10/29/2017 7:34 AM Dictated Date/Time: 10/29/2017 7:30 AM
== END ==
LOC: C.CTS 06:39
PROVIDERS: ATTEND Urology
DX: R31.0 Gross hematuria (principal); N20.1 Calculus of ureter